=== PATIENT | male | born 1945 | race Caucasian/White ===

== ENCOUNTER 2016-03-16 14:52 | Observation (INO) | payer MEDICARE, OTHER ==
[~2016-03-16] VITALS: Ht 170.2 cm; Wt 96.2 kg
[2016-03-16 15:00] VITALS: BP 140/97
[2016-03-16 15:54] LABS: BASOPHILS % (AUTO) 0 % (0-10); EOSINOPHILS # (AUTO) 0.1 10^3/uL (0.0-0.3); EOSINOPHILS % (AUTO) 1 % (0-10); LYMPHOCYTES # (AUTO) 1.8 X 10^3 (1.0-4.0); LYMPHOCYTES % (AUTO) 20 % (12-44); MEAN CORPUSCULAR HEMOGLOBIN 32 PG (25-34); MEAN CORPUSCULAR HGB CONC 35 G/DL (32-36); MEAN CORPUSCULAR VOLUME 92 FL (80-99); MEAN PLATELET VOLUME 10.5 FL (7.4-10.4); MONOCYTES % (AUTO) 11 % (0-12); NEUTROPHILS # (AUTO) 6.1 X 10^3 (1.8-7.8); NEUTROPHILS % (AUTO) 68 % (42-75); PLATELET COUNT 184 10^3/uL (130-400); RED BLOOD COUNT 4.84 10^6/uL (4.35-5.85)
[2016-03-16] MEDS ORDERED: CLOPIDOGREL 300 MG (PLAVIX) TABLET PO NR (16:00)
[2016-03-16 16:13] LABS: ALANINE AMINOTRANSFERASE 16 U/L (0-55); ALBUMIN 3.8 G/DL (3.2-4.5); ANION GAP 11 MMOL/L (5-14); ASPARTATE AMINO TRANSFERASE 16 U/L (5-34); BILIRUBIN,TOTAL 0.3 MG/DL (0.1-1.0); BLOOD UREA NITROGEN 29 MG/DL (7-18); BUN/CREATININE RATIO 24; CALCIUM 9.3 MG/DL (8.5-10.1); CARBON DIOXIDE 18 MMOL/L (21-32); CHLORIDE 109 MMOL/L (98-107); CREATININE SERUM 1.21 MG/DL (0.60-1.30); GFR ESTIMATED 59; GLUCOSE 110 MG/DL (70-105); POTASSIUM 4.4 MMOL/L (3.6-5.0); SODIUM 138 MMOL/L (135-145); TOTAL PROTEIN 7.4 G/DL (6.4-8.2)
[2016-03-16 16:18] LABS: TROPONIN I < 0.30 NG/ML (<0.30)
[2016-03-16] MEDS: ASPIRIN 325 MG (5 GR) TABLET PO SCH (16:51)
[2016-03-16] MEDS ORDERED: FLU TRIvalent (5 YOA+) 2016-17 (AFLURIA) 0.5 ML IM ONE (17:30)
[2016-03-16] MEDS ORDERED: MELA1TAB20 PO (17:40)
[2016-03-16] MEDS ORDERED: VALE530C PO (17:41)
[2016-03-16] MEDS ORDERED: ASPI-999 PO (17:46)
[2016-03-16] MEDS ORDERED: DOXA2TAB2 PO (17:46)
[2016-03-16] MEDS ORDERED: NIAC500T24 PO (17:46)
[2016-03-16] MEDS ORDERED: CYAN25003 SL (17:46)
[2016-03-16] MEDS ORDERED: KETO200T PO (17:46)
[2016-03-16] MEDS ORDERED: ROSU20TA28 PO (17:46)
[2016-03-16] MEDS ORDERED: MULT-517 PO (17:46)
[2016-03-16] MEDS ORDERED: LISI10TA2 PO (17:46)
[2016-03-16] MEDS ORDERED: CHOL500044 PO (17:46)
[2016-03-16 20:00] VITALS: BP 133/77
[2016-03-16 23:55] VITALS: BP 133/71
[2016-03-17 04:00] VITALS: BP 143/93
[2016-03-17 08:35] VITALS: BP 158/92
[2016-03-17] MEDS: ASPIRIN 325 MG (5 GR) TABLET PO SCH (08:41)
[2016-03-17] MEDS ORDERED: ASPIRIN 325 MG (5 GR) TABLET PO SCH (09:00)
--- NOTE | 2016-03-17 09:44 | Discharge Instructions ---
Discharge Instructions Discharge Medications New, Converted or Re-Newed RX: Other Continued Medications: Aspirin (Aspirin) 81 Mg Tab.chew 81 MG PO DAILY TAB Cholecalciferol (Vitamin D3) (Vitamin D3) 5,000 Unit Tablet 5000 UNIT PO DAILY TAB Cyanocobalamin (Vitamin B-12) (Vitamin B-12) 2,500 Mcg Tab.subl 2500 MCG SL DAILY TAB Doxazosin Mesylate (Doxazosin Mesylate) 2 Mg Tablet 2 MG PO BID TAB Ketoconazole (Ketoconazole) 200 Mg Tablet 200 MG PO DAILY TAB Lisinopril (Lisinopril) 10 Mg Tablet 10 MG PO DAILY TAB Melatonin/Pyridoxine HCl (B6) (Melatonin 10 mg Tablet) 1 Each Tab.mphase 1 EACH PO HS MG Multivitamin (Men's Multi-Vitamin) 1 Each Tablet 1 EACH PO DAILY TAB Niacinamide (Niacin) 500 Mg Tablet 500 MG PO DAILY TAB Rosuvastatin Calcium (Rosuvastatin Calcium) 20 Mg Tablet 20 MG PO DAILY TAB Valerian Root (Valerian) 450 Mg Capsule 450 MG PO HS CAP Patient Instructions Goal/Follow Up Appt: Schedule stress test as instructed by Cardiology Patient Instructions: Retunr if chest pain recurs Activity & Diet Discharge Diet: Cardiac Diet Activity as Tolerated: Yes MAIDA ROSARIO DO Mar 17, 2016 09:44
[2016-03-17] MEDS ORDERED: NIACIN 500 MG TABLET PO SCH (09:54)
[2016-03-17 10:30] VITALS: BP 158/92
--- NOTE | 2016-03-17 10:35 | Consultation-Cardiology ---
HPI-Cardiology Cardiology Consultation: Date of Consultation 03/17/16 Date of Admission Attending Physician Rodolfo Woody MD Admitting Physician Tay Govea MD Consulting Physician Danna CLAYTON MD HPI: Chief Complaint: Chest pain This is a 71-year-old gentleman who is in his usual state of health. He visited his primary care physician with the complains of headache, jaw pain, diaphoresis, chest discomfort. Review of Systems-Cardiology Review of Systems Constitutional: No As described under HPI, No no symptoms reported, No chills, No fever, No lightheadedness, No malaise, No tiredness, No weight loss, No weight gain, other (diaphoresis) Eyes: No As described under HPI, No no symptoms reported, No blindness, No blurred vision, No contact lenses, No drainage, No decreased acuity, No foreign body sensation, No glasses, No inflammation, No pain, No photophobia, No previous injury, No shadows, No tunnel vision, No other, No vision change Ears/Nose/Throat: No As described under HPI, No no symptoms reported, No chronic hearing loss, No epistaxis, No ear discharge, No ear pain, No loose teeth, No mouth pain, No mouth swelling, No nasal drainage, No nose pain, No recent hearing loss, No throat pain, No throat swelling, No ulcerations, No other Respiratory: No no symptoms reported, No As described under HPI, No cough, No orthopnea, No shortness of breath, No SOB with excertion, No SOB at rest, No stridor, No wheezing, No other Cardiovascular: chest pain Gastrointestinal: No no symptoms reported, No As described under HPI, No abdomen distended, No abdominal pain, No blood streaked bowels, No constipation , No diarrhea, No difficulty swallowing, No nausea, No poor appetite, No poor fluid intake, No rectal bleeding, No vomiting, No other, No nausea/vomiting/ diarrhea, No stool coloration changes Genitourinary: No no symptoms reported, No As described under HPI, No burning, No dysuria, No discharge, No frequency, No flank pain, No hematuria, No incontinence, No pain, No urgency, No other, No urine frequency changes, No urine coloration changes Musculoskeletal: No no symptoms reported, No As describe under HPI, No back pain, No gout, No joint pain, No joint swelling, No muscle pain, No muscle stiffness, No neck pain, No other Skin: No no symptoms reported, No As described under HPI, No change in color, No change in hair/nails, No dryness, No lesions, No lumps, No rash, No other, No skin related problems, No ulcerations, No rash on exposed areas, No ulcerations on exposed areas Psychiatric/Neurological: headacheNo As described under HPI, No anxiety, No depression, No emotional problems, No focal weakness, No no symptoms reported, No numbness, No other, No pre-existing deficit, No seizure, No syncope, No tingling, No tremors, No weakness Hematologic: No no symptoms reported, No As described under HPI, No anemia, No blood clots, No easy bleeding, No easy bruising, No swollen glands, No other, No bleeding abnormalities MCL-Llaxkl-Cexmhp Hx Patient Social History Alcohol Use: Rarely Uses Recreational Drug Use: No Smoking Status: Current Everyday Smoker Type Used: Cigars Recent Foreign Travel: No Recent Infectious Disease Expo: No Hospitalization with Isolation: Denies Physical Abuse Screen: No Sexual Abuse: No Past Medical History PMH As described under Assessment. Allergies and Home Medications Allergies Coded Allergies: No Known Drug Allergies (Unverified , 03/16/16) Home Medications Aspirin 81 Mg Tab.chew 81 MG PO DAILY (Reported) Cholecalciferol (Vitamin D3) 5,000 Unit Tablet 5,000 UNIT PO DAILY (Reported) Cyanocobalamin (Vitamin B-12) 2,500 Mcg Tab.subl 2,500 MCG SL DAILY (Reported) Doxazosin Mesylate 2 Mg Tablet 2 MG PO BID (Reported) Ketoconazole 200 Mg Tablet 200 MG PO DAILY (Reported) Lisinopril 10 Mg Tablet 10 MG PO DAILY (Reported) Melatonin/Pyridoxine HCl (B6) 1 Each Tab.mphase 1 EACH PO HS (Reported) Multivitamin 1 Each Tablet 1 EACH PO DAILY (Reported) Niacinamide 500 Mg Tablet 500 MG PO DAILY (Reported) Rosuvastatin Calcium 20 Mg Tablet 20 MG PO DAILY (Reported) Valerian Root 450 Mg Capsule 450 MG PO HS (Reported) Physical Exam-Cardiology Physical Exam Vital Signs/I&O Vital Sign - Last 12Hours 03/17/16 03/17/16 03/17/16 03/17/16 04:00 04:00 07:00 08:15 Temp 97.8 Pulse 68 59 Resp 18 B/P 143/93 Pulse Ox 97 O2 Delivery Room Air Room Air Room Air 03/17/16 03/17/16 03/17/16 08:15 08:35 10:30 Temp 97.3 Pulse 57 57 Resp 16 16 B/P 158/92 158/92 Pulse Ox 97 97 O2 Delivery Room Air Room Air Room Air Intake and Output 03/17/16 00:00 Intake Total 840 ml Balance 840 ml Capillary Refill : Constitutional: No appears stated age, No AAO x 3, No apparent distress, No PERRL, No well-developed, No well-nourished, No other HEENT: No PERRL, No normal ENT inspection, No TMs normal, No pharynx normal, No scleral icterus (R), No scleral icterus (L), No pale conjunctivae (R), No pale conjunctivae (L), No photophobia, No TM abnormal (R), No TM abnormal (L), No pharyngeal erythema, No tonsillar exudate, No other, No discharge, No EOMI, No hearing is well preserved, No hard of hearing, No oral hygience is good, No ulceration, No xanthelasmas are seen Neck: No non-tender, No full range of motion, No supple, No normal inspection, No carotid bruit, No limited range of motion, No lymphadenopathy (R), No lymphadenopathy (L), No tender lateral, No tender midline, No thyromegaly, No other, No carotid pulses are 2 + bilaterally, No with good upstrokes Respiratory: No accessory muscle use, No respiratory distress, No chest tender , No chest expansion is symmetric, No chest is bilaterally symmetric, No lungs clear to percussion, No lungs clear to auscultation, No crackles, No rhonchi, No rales, No stridor, No wheezing, No pleural rub, No other Cardiovascular: No regular rate-rhythm, No irregularly irregular, No extra beats, No parasternal heave is noted, No JVD, No edema, No bradycardia, No tachycardia, No point of maximal impulse, No cardiac thrills are palpable, No S1 and S2, No gallop/S3, No gallop/S4, No diastolic murmur, No systolic murmur, No friction rub, No click, No other Gastrointestinal: No tender, No soft, No round, No distended, No pulsatile mass , No organomegaly, No guarding, No rebound, No tenderness, No hernia, No mass, No audible bowel sounds, No abnormal bowel sounds, No abdominal bruits, No spleenomegaly, No other Rectal: deferred Extremities: No normal range of motion, No non-tender, No normal inspection, No pedal edema, No calf tenderness, No normal capillary refill, No pelvis stable , No calf tenderness, No inflammation, No pedal edema, No slow capillary refill , No swelling, No other, No abrasion, No clubbing, No cyanosis, No ecchymosis, No laceration, No no lower extremity edema bilateral, No significant edema, No tenderness, No wound Neurologic/Psychiatric: No superintendent police II-XII nml as tested, No no motor/sensory deficits, No alert, No normal mood/affect, No oriented x 3, No abnormal cerebellar tests, No abnormal superintendent police II-XII, No abnormal gait, No aphasia, No EOM palsy, No facial droop, No motor weakness, No sensory deficit, No depressed affect, No disoriented x 3, No other, No grossly intact, No power is 5/5 both on sides Skin: No normal color, No warm/dry, No cyanosis, No cool, No diaphoresis, No damp, No ecchymosis, No jaundice, No mottled, No pallor, No rash, No tattoos/ piercings, No ulcerations, No rash on exposed areas, No ulcerations on exposed areas, No other Data Review Labs Laboratory Tests 03/16/16 15:48: Alanine Aminotransferase (ALT/SGPT) 16, Albumin 3.8, Alkaline Phosphatase 70, Anion Gap 11, Aspartate Amino Transf (AST/SGOT) 16, BUN/Creatinine Ratio 24, Basophils # (Auto) 0.0, Basophils (%) (Auto) 0, Blood Urea Nitrogen 29H, Calcium Level 9.3, Carbon Dioxide Level 18L, Chloride Level 109H, Creatinine 1.21, Eosinophils # (Auto) 0.1, Eosinophils (%) (Auto) 1, Estimat Glomerular Filtration Rate 59, Glucose Level 110H, Hematocrit 45, Hemoglobin 15.5, Lymphocytes # (Auto) 1.8, Lymphocytes (%) (Auto) 20, Mean Corpuscular Hemoglobin 32, Mean Corpuscular Hemoglobin Concent 35, Mean Corpuscular Volume 92, Mean Platelet Volume 10.5H, Monocytes # (Auto) 1.0, Monocytes (%) (Auto) 11 , Neutrophils # (Auto) 6.1, Neutrophils (%) (Auto) 68, Platelet Count 184, Potassium Level 4.4, Red Blood Count 4.84, Red Cell Distribution Width 14.0, Sodium Level 138, Total Bilirubin 0.3, Total Protein 7.4, Troponin I < 0.30, White Blood Count 9.0 03/16/16 22:02: Troponin I < 0.30 03/17/16 04:05: Troponin I < 0.30 ECG Impression ECG Initial ECG Rhythm: Normal Sinus Initial ECG Intervals Right bundle branch block A/P-Cardiology Assessment/Admission Diagnosis Chest pain, right bundle branch block, hypertension, hyperlipidemia Plan Chest pain in a patient who is 71-year-old with hypertension, hyperlipidemia, active cigar smoking. Acute coronary syndrome was ruled out with negative serial EKGs and troponins. The patient wants to go home. We recommended inpatient [facility] nuclear stress test but the patient wants it as an outpatient. We'll arrange it next week. I've recommended to the patient to seek immediate medical attention if the symptoms recur. He will continue the same medication for hypertension and hyperlipidemia. I will follow up in the office as an outpatient. My office contact information was given to the patient. Echocardiogram showed normal LV function with no significant wall motion of the modalities. Thank you for your consultation. Please call me if you have any questions. Brandi Clayton MD, FACP, FACC, FSCAI, FHRS, CCDS Interventional Cardiology Cardiac Electrophysiology Vascular Medicine and Endovascular Interventions Clinical Quality Measures DVT/VTE Risk/Contraindication: Risk Factor Score Per Nursin RFS Level Per Nursing on Admit: 3=High Danna CLAYTON MD Mar 17, 2016 10:35
--- NOTE | 2016-03-17 10:48 | Short Stay Summary-Hospitalist ---
HPI History of Present Illness: HPI/Chief Complaint CC: Chest pain HPI: This is a 71yoWM pt that was admitted via the one-call system with chest pain and body aches. EKGs were taken but were normal. 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 Cardiology is arranging for out-patient care. Patient Interview: Pt states that he very much wants to leave. Pt was ambulating in room. Pt states that he has not spoken to any physicians yet today. Pt states that he will receive nuclear medicine on the 27 of April. Pt states that he was supposed to have a stress test conducted, but felt very flushed and achy all over yesterday. Pt was placed on EKG and had an irregular heartbeat. EKGs conducted at [facility] have been normal. Pt states that his BP has been spiking. Pt states that he normally takes BP meds. Pt states that he has been stressed recently. Physical exam was stable. Pt smokes a few cigars each day. Pt states that he worked with the [employer] for 35 years. Plan: Send note to PCP DC Out-patient Cardiology Scribed by César Monge under the direct supervision of Dr. Rosario. Source: patient, RN/MD Date Seen 03/17/16 Attending Physician Rodolfo Woody MD PCP Tay Matos MD Referring Physician Date of Admission Mar 16, 2016 at 15:10 Home Medications & Allergies Home Medications Reviewed patient Home Medication Reconciliation Form Allergies Coded Allergies: No Known Drug Allergies (Unverified , 03/16/16) Past Wbasxmw-Pxwube-Ybxdvl Hx Patient Social History Marrital Status: Employed/Student: retired ([employer] 35 yrs) Alcohol Use: Rarely Uses Recreational Drug Use: No Smoking Status: Current Everyday Smoker Type Used: Cigars Physical Abuse Screen: No Sexual Abuse: No Recent Foreign Travel: No Contact w/other who traveled: No Recent Hopitalizations: No Recent Infectious Disease Expo: No Seasonal Allergies Seasonal Allergies: No Surgeries HX Surgeries: No Respiratory Hx Respiratory Disorders: No Cardiovascular Hx Cardiovascular Disorders: Yes Cardiac Disorders: High Cholesterol, Hypertension Neurological Hx Neurological Disorders: No Genitourinary Hx Genitourinary Disorders: No Gastrointestinal Hx Gastrointestinal Disorders: No Musculoskeletal Hx Musculoskeletal Disorders: No Endocrine Hx Endocrine Disorders: No HEENT HX ENT Disorders: Yes HEENT Disorders: Cataract Cancer Hx Cancer: No Psychosocial Hx Psychiatric Problems: No Integumentary HX Skin/Integumentary Disorder: No Review of Systems Constitutional: see HPI EENTM: no symptoms reported Respiratory: no symptoms reported Cardiovascular: chest pain Gastrointestinal: no symptoms reported Genitourinary: no symptoms reported Musculoskeletal: no symptoms reported Skin: no symptoms reported Psychiatric/Neurological: No Symptoms Reported All Other Systems Reviewed Negative Unless Noted: Yes Physical Exam Physical Exam Vital Signs Vital Sign - Last 12Hours 03/16/16 15:00 Temp 99.2 Pulse 79 Resp 11 B/P 140/97 Pulse Ox 97 O2 Delivery Room Air Capillary Refill : General Appearance: No Apparent Distress WD/WN Eyes: Bilateral Eye Normal Inspection, Bilateral Eye PERRL HEENT: PERRL/EOMI Normal ENT Inspection Pharynx Normal Neck: Full Range of Motion Normal Inspection Non Tender Supple Carotid Bruit Respiratory: Chest Non Tender Lungs Clear Normal Breath Sounds No Accessory Muscle Use No Respiratory Distress Cardiovascular: Regular Rate, Rhythm No Edema No Gallop No JVD No Murmur Normal Peripheral Pulses Gastrointestinal: Normal Bowel Sounds No Organomegaly No Pulsatile Mass Non Tender Soft Back: Normal Inspection No CVA Tenderness No Vertebral Tenderness Extremity: Normal Capillary Refill Normal Inspection Normal Range of Motion Non Tender No Calf Tenderness No Pedal Edema Neurologic/Psychiatric: Alert Oriented x3 No Motor/Sensory Deficits Normal Mood/Affect Skin: Normal Color Warm/Dry Lymphatic: No Adenopathy Results Results/Procedures Lab Laboratory Tests 03/16/16 15:48 Short Stay Diagnosis Discharge Diagnosis-Short Stay Admission Diagnosis Assessment: Chest pain of uncertain source but pt demands DC to home and will follow-up with stress test per cardiology. HTN HLP Final Discharge Diagnosis Assessment: Chest pain of uncertain source but pt demands DC to home and will follow-up with stress test per cardiology. HTN HLP Conclusion Plan DC patient or he will leave AMA EST outpatient Return if CP recurs Copy Copies To 1: TAY MATOS MD Clinical Quality Measures DVT/VTE Risk/Contraindication: Risk Factor Score Per Nursin RFS Level Per Nursing on Admit: 3=High MAIDA ROSARIO DO Mar 17, 2016 10:48
--- NOTE | 2016-03-17 13:50 | ECHOCARDIOGRAPHY REPORT ---
PROCEDURE PHYSICIAN: RAUL GOMES DATE OF PROCEDURE: 03/16/2016 TWO DIMENSIONAL ECHOCARDIOGRAM REPORT PRIMARY PHYSICIAN: OTHER PHYSICIAN: REFERRING PHYSICIAN: ORDERING PHYSICIAN: ATTENDING PHYSICIAN: Dr. Rodolfo Woody FAMILY PHYSICIAN: READING PHYSICIAN: INDICATION FOR THE PROCEDURE: Chest pain, shortness of breath MEASUREMENTS DERIVED VALUES LV DIAMETER (LAX) NORMALS NORMALS Diastolic (3.6-5.2) Eject. Fract. (60%+/-6%) Systolic (2.3-3.9) Diastolic Vol. % Shortening (0.22-0.42) Systolic Vol. Aortic Root IVS THICKNESS Diastolic (0.6-1.1) LVPW THICKNESS Diastolic (0.6-1.1) LA DIAMETER Systolic (2.1-3.7) FINDINGS: 1. Sinus rhythm. 2. This is a technically difficult study. 3. Left atrium enlargement is not noted. 4. Aortic root dimensions are normal. 5. Left ventricular systolic function is preserved. Left ventricular ejection fraction is 60%. Mild concentric LVH is present. Diastolic intraventricular septal diameter is 1.2 cm. 6. There is no wall motion abnormality. 7. Right heart size and function is normal. 8. There is no evidence of pericardial effusion. 9. There is mild diastolic dysfunction. 10. IVC is normal. VALVULAR STRUCTURE OF THE HEART: The mitral valve apparatus shows trace mitral regurgitation. There is trace tricuspid regurgitation with no significant pulmonary hypertension. There is no significant aortic pathology. The pulmonic valve is not well visualized. CONCLUSION: 1. LV and RV size and function is normal. 2. LV EF is 55 to 60%. 3. There is no significant valvular heart disease. 4. PA pressure is not elevated. 5. Mild diastolic dysfunction. 6. This is a difficult study and some images are limited. Job ID: [id number] Dictated Date: 03/17/2016 13:12:27 Paint And Table Edger Date: 03/17/2016 13:46:26 / chanelle
[2016-03-17] MEDS ORDERED: NON-FORMULARY MEDICATION 1 EA EA (Melatonin/Pyridoxine HCl (B6) (Melatonin 10 mg Tablet) 1 PO SCH (21:00)
[2016-03-17] MEDS ORDERED: VALERIAN ROOT 450 MG PO SCH (21:00)
[2016-03-17] MEDS ORDERED: doxAzosin 2 MG (CARDURA) TAB PO SCH (21:00)
[2016-03-18] MEDS ORDERED: MULTIVIT W/MINERALS TAB (THERAGRAN M) PO SCH (07:00)
[2016-03-18] MEDS ORDERED: KETOCONAZOLE 200 MG PO SCH (09:00)
[2016-03-18] MEDS ORDERED: lisINopril 10 MG (PRINIVIL) TAB PO SCH (09:00)
[2016-03-18] MEDS ORDERED: [UNRECOGNIZED DRUG - OTHER] SL SCH (09:00)
[2016-03-18] MEDS ORDERED: ROSUVASTATIN 20 MG (CRESTOR) TABLET PO SCH (09:00)
[2016-03-18] MEDS ORDERED: VITAMIN D3 5,000 UNITS (CHOLECALCIFEROL ) CAPSULE PO SCH (09:00)
[2016-03-18] MEDS ORDERED: ASPIRIN 81 MG CHEW (CHILDREN'S ASA) PO SCH (09:00)
[2016-03-18] MEDS ORDERED: CYANOCOBALAMIN 2500 MCG SL SCH (09:00)
== END 2016-03-17 09:41 | disposition home or self-care (01) ==
LOC: ICU 15:00 → UNDOADMOB 15:10 → ICU 15:10 → UNDODISOB 03-17 09:41
PROVIDERS: ADMIT Internal Medicine; ATTEND Internal Medicine
DX: R07.9 Chest pain, unspecified (principal); I10 Essential (primary) hypertension; E78.5 Hyperlipidemia, unspecified; F17.210 Nicotine dependence, cigarettes, uncomplicated; Z23 Encounter for immunization
CPT/HCPCS: 36415; 80053; 84484; 85025; 93005; 93306; 99211; G0378

== ENCOUNTER 2016-03-24 06:52 | Inpatient (IN) | payer MEDICARE, OTHER ==
[~2016-03-24] VITALS: Ht 170.2 cm; Wt 98.4 kg
[~2016-03-24 06:52] MED LIST: ASPI-999 PO; ASPIRIN 81 MG CHEW (CHILDREN'S ASA) ONE; CHOL500044 PO; CYAN25003 SL; DOXA2TAB2 PO; KETO200T PO; LISI10TA2 PO; MELA1TAB20 PO; MULT-517 PO; NIAC500T24 PO; ROSU20TA28 PO; RX-NITROGLYCERIN 0.4 MG TAB BTL 25'S SL ONE; VALE530C PO
--- OUTSIDE RECORDS SUMMARY | 2016-03-24 06:57 | XMS REPORT | Continuity of Care Document ---
Author Author [facility] Organization [facility] Address Unknown Phone Unavailable Care Team Providers Care Rn Bariatric Name Role Phone DONNA MATOS MD PCP Insurance Providers Payer Name Policy Number Subscriber Name Relationship Wps Medicare [id number] Jalen Brody 18 Self / Same As Patient Enter Insurance Name [id number] Jalen Brody 18 Self / Same As Patient For Life [id number] Jalen Brody 18 Self / Same As Patient Advance Directives Directive Response Recorded Date/Time Advance Directives No 03/16/16 3:00pm Health Care Power of Clinic Administrator Yes 03/16/16 3:00pm Organ Donor No 03/16/16 3:00pm Resuscitation Status Full Code 03/16/16 3:00pm Chief Complaint and Reason for Visit Chief Complaint CHEST PAIN/SOA Reason for Visit chest pain Problems Active Problems Medical Problem Onset Date Status chest pain Unknown Acute Medications Current Home Medications Medication Dose Units Route Directions Days/Qty Instructions Start Date Melatonin/Pyridoxine Hcl (B6) 1 Each 1 Each Oral Bedtime 03/16/16 Valerian Root 450 Mg 450 Mg Oral Bedtime 03/16/16 Rosuvastatin Calcium 20 Mg 20 Mg Oral Daily 03/16/16 Ketoconazole 200 Mg 200 Mg Oral Daily 03/16/16 Lisinopril 10 Mg 10 Mg Oral Daily 03/16/16 Cholecalciferol (Vitamin D3) 5,000 Unit 5,000 Unit Oral Daily Aspirin 81 Mg 81 Mg Oral Daily 03/16/16 Multivitamin 1 Each 1 Each Oral Daily 03/16/16 Cyanocobalamin (Vitamin B-12) 2,500 Mcg 2,500 Mcg Sublingual Daily 03/16/16 Niacinamide 500 Mg 500 Mg Oral Daily 03/16/16 Doxazosin Mesylate 2 Mg 2 Mg Oral Twice A Day 03/16/16 Social History Social History Problem Response Recorded Date/Time Alcohol Use Rarely Uses 03/16/2016 3:00pm Recreational Drug Use No 03/16/2016 3:00pm Recent Foreign Travel No 03/16/2016 3:09pm Recent Infectious Disease Exposure No 03/16/2016 3:00pm Hospitalization with Isolation Denies 03/17/2016 12:49pm Smoking Status Current Everyday Smoker 03/16/2016 3:00pm Type Used Cigars 03/17/2016 12:49pm Recent Hopitalizations No 03/16/2016 3:00pm Hospitalization with Isolation Denies 03/17/2016 12:49pm Query Response Start Date Stop Date Smoking Status Current Everyday Smoker Hospital Discharge Instructions Patient Instructions Physician Instructions New, Converted or Re-Newed RX: Other Goal/Follow Up Appt: Schedule stress test as instructed by Cardiology Patient Instructions: Retunr if chest pain recurs Discharge Diet: Cardiac Diet Activity as Tolerated: Yes Care Plan Patient Instructions:: Retunr if chest pain recurs Goal:: Schedule stress test as instructed by Cardiology Plan of Care Discharge Date 03/17/16 10:30am Disposition 01 HOME, SELF-CARE Instructions/Education Provided Chest Pain (DC) Prescriptions See Medication Section Referrals (Unspecified) - Reason(s) for Referral: Scheduling will call you for an appointment for a Nuclear Medicine stress test. Most likely will be on 04-21-16 Care Plan and Goals See Discharge Instructions Section Functional Status Query Response Date Recorded Patient Orientation Person Place Time Situation March 17, 2016 12:49pm Comprehension Ability Understands Concepts March 17, 2016 8:15am Allergies, Adverse Reactions, Alerts No known allergies. Immunizations Name Given Type FLU TRIvalent 5 years - Adult 03/17/16 Administered Vital Signs Acute Vital Signs Vital Response Date/Time Temperature (Fahrenheit) 97.3 degrees F (97.6 - 99.5) 03/17/2016 10:30am Temperature (Calculated Celsius) 36.57003 degrees C (36.4 - 37.5) 03/17/2016 8:35am Temperature Source Tympanic 03/17/2016 10:30am Pulse Rate (adult) 57 bpm (60 - 90) 03/17/2016 10:30am Respiratory Rate 16 bpm (12 - 24) 03/17/2016 10:30am O2 Sat by Pulse Oximetry 97 % (88 - 100) 03/17/2016 10:30am Blood Pressure 158/92 mm Hg 03/17/2016 10:30am Blood Pressure Mean 114 mm Hg 03/17/2016 8:35am Pain Numeric Pain Scale 0-No Pain 03/17/2016 10:30am Height (Feet) 5 feet 03/16/2016 3:00pm Height (Inches) 7.00 inches 03/16/2016 3:00pm Height (Calculated Centimeters) 170.368945 cm 03/16/2016 3:00pm Weight (Pounds) 212 pounds 03/17/2016 5:51am Weight (Ounces) 4.0 oz 03/16/2016 3:00pm Weight (Calculated Grams) 26971.583 gm 03/17/2016 5:51am Weight (Calculated Kilograms) 96.680757 kilograms 03/17/2016 5:51am Calculated BMI 33.2 03/16/2016 3:00pm Results Laboratory Results Test Name Result Units Flags Reference Collection Date/Time Result Date/ Time Comments White Blood Count 9.0 10^3/uL 4.3-11.0 03/16/2016 3:48pm 03/16/2016 3: 54pm Red Blood Count 4.84 10^6/uL 4.35-5.85 03/16/2016 3:48pm 03/16/2016 3: 54pm Hemoglobin 15.5 G/DL 13.3-17.7 03/16/2016 3:48pm 03/16/2016 3:54pm Hematocrit 45 % 40-54 03/16/2016 3:48pm 03/16/2016 3:54pm Mean Corpuscular Volume 92 FL 80-99 03/16/2016 3:48pm 03/16/2016 3: 54pm Mean Corpuscular Hemoglobin 32 PG 25-34 03/16/2016 3:48pm 03/16/2016 3: 54pm Mean Corpuscular Hemoglobin Concent 35 G/DL 32-36 03/16/2016 3:48pm 3:54pm Red Cell Distribution Width 14.0 % 10.0-14.5 03/16/2016 3:48pm 2016 3:54pm Platelet Count 184 10^3/uL 130-400 03/16/2016 3:48pm 03/16/2016 3:54pm Mean Platelet Volume 10.5 FL H 7.4-10.4 03/16/2016 3:48pm 03/16/2016 3: 54pm Neutrophils (%) (Auto) 68 % 42-75 03/16/2016 3:48pm 03/16/2016 3:54pm Lymphocytes (%) (Auto) 20 % 12-44 03/16/2016 3:48pm 03/16/2016 3:54pm Monocytes (%) (Auto) 11 % 0-12 03/16/2016 3:48pm 03/16/2016 3:54pm Eosinophils (%) (Auto) 1 % 0-10 03/16/2016 3:48pm 03/16/2016 3:54pm Basophils (%) (Auto) 0 % 0-10 03/16/2016 3:48pm 03/16/2016 3:54pm Neutrophils # (Auto) 6.1 X 10^3 1.8-7.8 03/16/2016 3:48pm 03/16/2016 3: 54pm Lymphocytes # (Auto) 1.8 X 10^3 1.0-4.0 03/16/2016 3:48pm 03/16/2016 3: 54pm Monocytes # (Auto) 1.0 X 10^3 0.0-1.0 03/16/2016 3:48pm 03/16/2016 3: 54pm Eosinophils # (Auto) 0.1 10^3/uL 0.0-0.3 03/16/2016 3:48pm 03/16/2016 3 :54pm Basophils # (Auto) 0.0 10^3/uL 0.0-0.1 03/16/2016 3:48pm 03/16/2016 3: 54pm Sodium Level 138 MMOL/L 135-145 03/16/2016 3:48pm 03/16/2016 4:15pm Potassium Level 4.4 MMOL/L 3.6-5.0 03/16/2016 3:48pm 03/16/2016 4:15pm Chloride Level 109 MMOL/L H 98-107 03/16/2016 3:48pm 03/16/2016 4:15pm Carbon Dioxide Level 18 MMOL/L L 21-32 03/16/2016 3:48pm 03/16/2016 4: 15pm Anion Gap 11 MMOL/L 5-14 03/16/2016 3:48pm 03/16/2016 4:15pm Blood Urea Nitrogen 29 MG/DL H 7-18 03/16/2016 3:48pm 03/16/2016 4:15pm Creatinine 1.21 MG/DL 0.60-1.30 03/16/2016 3:48pm 03/16/2016 4:15pm BUN/Creatinine Ratio 24 03/16/2016 3:48pm 03/16/2016 4:15pm Estimat Glomerular Filtration Rate 59 03/16/2016 3:48pm 03/16/2016 4:15pm GFR INTERPRETIVE DATA UNITS FOR ESTIMATED GFR (eGFR): mL/min/1.73 M2 REFERENCE RANGE FOR ESTIMATED GFR (eGFR) eGFR NORMAL eGFR >60 MODERATELY DECREASED eGFR 30-59 SEVERLY DECREASED eGFR 15-29 KIDNEY FAILURE <15 (OR DIALYSIS) Glucose Level 110 MG/DL H 70-105 03/16/2016 3:48pm 03/16/2016 4:15pm Calcium Level 9.3 MG/DL 8.5-10.1 03/16/2016 3:48pm 03/16/2016 4:15pm Total Bilirubin 0.3 MG/DL 0.1-1.0 03/16/2016 3:48pm 03/16/2016 4:15pm Alkaline Phosphatase 70 U/L 40-136 03/16/2016 3:48pm 03/16/2016 4:15pm Aspartate Amino Transf (AST/SGOT) 16 U/L 5-34 03/16/2016 3:48pm 2016 4:15pm Alanine Aminotransferase (ALT/SGPT) 16 U/L 0-55 03/16/2016 3:48pm 03/16 4:15pm Troponin I < 0.30 NG/ML <0.30 03/17/2016 4:05am 03/17/2016 5:10am Total Protein 7.4 G/DL 6.4-8.2 03/16/2016 3:48pm 03/16/2016 4:15pm Albumin 3.8 G/DL 3.2-4.5 03/16/2016 3:48pm 03/16/2016 4:15pm Procedures Procedure Status Date Provider(s) Tracing only of electrocardiogram Completed 03/16/16 RONDA POE MD Color Doppler echocardiography Active 03/16/16 Danna GOMES MD Tracing only of electrocardiogram Completed 03/16/16 Danna GOMES MD Tracing only of electrocardiogram Completed 03/17/16 Danna GOMES MD Encounters Encounter Location Arrival/Admit Date Discharge/Depart Date Attending Provider Discharged Inpatient (obs) [facility] 03/16/16 3:10pm 10:30am RONDA POE MD Recent Diagnosis chest pain
[2016-03-24] MEDS: ASPIRIN 81 MG CHEW (CHILDREN'S ASA) PO ONE ×2 (06:59→09:24)
[2016-03-24] MEDS ORDERED: HEParin DRIP 25000 UNIT/500ML 500 ML IV ONE (07:00)
[2016-03-24] MEDS ORDERED: HEParin 1000 UNIT/ML (10ML VIAL) FOR BOLUS IV ONE (07:00)
[2016-03-24] MEDS: RX-NITROGLYCERIN 0.4 MG TAB BTL 25'S SL PRN ×2 (07:00→07:05)
[2016-03-24] MEDS ORDERED: ONDANSETRON 4 MG/2 ML (SDV) Z0FRAN ONE (07:01)
[2016-03-24] MEDS ORDERED: morphine INJ 10 MG/ML 1ML (SYR OR VIAL) IVP STA (07:02)
[2016-03-24] MEDS: CLOPIDOGREL 300 MG (PLAVIX) TABLET PO ONE ×2 (07:07→09:24)
[2016-03-24 07:08] LABS: BASOPHILS % (AUTO) 0 % (0-10); EOSINOPHILS # (AUTO) 0.3 10^3/uL (0.0-0.3); EOSINOPHILS % (AUTO) 3 % (0-10); LYMPHOCYTES # (AUTO) 3.8 X 10^3 (1.0-4.0); LYMPHOCYTES % (AUTO) 42 % (12-44); MEAN CORPUSCULAR HEMOGLOBIN 32 PG (25-34); MEAN CORPUSCULAR HGB CONC 35 G/DL (32-36); MEAN CORPUSCULAR VOLUME 91 FL (80-99); MEAN PLATELET VOLUME 10.3 FL (7.4-10.4); MONOCYTES # (AUTO) 0.7 X 10^3 (0.0-1.0); MONOCYTES % (AUTO) 8 % (0-12); NEUTROPHILS # (AUTO) 4.3 X 10^3 (1.8-7.8); NEUTROPHILS % (AUTO) 47 % (42-75); PLATELET COUNT 207 10^3/uL (130-400); RED BLOOD COUNT 5.23 10^6/uL (4.35-5.85); RED CELL DISTRIBUTION WIDTH 14.2 % (10.0-14.5); WHITE BLOOD COUNT 9.1 10^3/uL (4.3-11.0)
--- NOTE | 2016-03-24 07:08 | ED Chest Pain ---
General Stated Complaint: CP Source: patient (DIFFICULT HISTORIAN AND TALKS NON-STOP--DIFFICULT TO KEEP ON SUBJECT), old records (ALL PMH IS FROM OLD CHART) History of Present Illness Time seen by provider: 06:53 Initial Comments PT ARRIVES VIA POV FROM HOME C/O CHEST PAIN AND "HURTING ALL OVER" WITH PAIN IN LEFT JAW/NECK AND LEFT ARM -- BEGAN ON WAKING AN HOUR AGO, BUT STATES HE HAS BEEN HAVING THIS PAIN OFF AND ON FOR A WEEK WAS HOSPITALIZED LAST WEEK FOR SAME, BUT PT INSISTED ON LEAVING BEFORE STRESS TEST WAS CONDUCTED. PT HAS BEEN SHORT OF BREATH, PER , BUT PT DENIES FEELING SHORT OF BREATH DENIES SWEATS DENIES NAUSEA/VOMITING NO SWELLING IN LEGS/ FEET OR PAIN IN CALVES PCP: DR. MATOS Allergies and Home Medications Allergies Coded Allergies: No Known Drug Allergies (Unverified , 03/16/16) Home Medications Aspirin 81 Mg Tab.chew 81 MG PO DAILY (Reported) Cholecalciferol (Vitamin D3) 5,000 Unit Tablet 5,000 UNIT PO DAILY (Reported) Cyanocobalamin (Vitamin B-12) 2,500 Mcg Tab.subl 2,500 MCG SL DAILY (Reported) Doxazosin Mesylate 2 Mg Tablet 2 MG PO BID (Reported) Ketoconazole 200 Mg Tablet 200 MG PO DAILY (Reported) Lisinopril 10 Mg Tablet 10 MG PO DAILY (Reported) Melatonin/Pyridoxine HCl (B6) 1 Each Tab.mphase 1 EACH PO HS (Reported) Multivitamin 1 Each Tablet 1 EACH PO DAILY (Reported) Niacinamide 500 Mg Tablet 500 MG PO DAILY (Reported) Rosuvastatin Calcium 20 Mg Tablet 20 MG PO DAILY (Reported) Valerian Root 450 Mg Capsule 450 MG PO HS (Reported) Review of Systems Constitutional: no symptoms reported Respiratory: See HPI Shortness of Air Cardiovascular: See HPI Chest Pain Gastrointestinal: No Symptoms Reported Genitourinary: No Symptoms Reported Musculoskeletal: see HPI Skin: no symptoms reported Psychiatric/Neurological: No Symptoms Reported Endocrine: No Symptoms Reported Hematologic/Lymphatic: No Symptoms Reported Past Mlqhynm-Jsjcqn-Icuzla Hx Patient Social History Alcohol Use: Occasionally Uses Recreational Drug Use: No Smoking Status: Current Everyday Smoker Type Used: Cigars Recent Foreign Travel: No Contact w/Someone Who Travel: No Recent Hopitalizations: No Seasonal Allergies Seasonal Allergies: No Surgeries HX Surgeries: No Respiratory Hx Respiratory Disorders: No Cardiovascular Hx Cardiac Disorders: Yes Cardiac Disorders: High Cholesterol, Hypertension Neurological Hx Neurological Disorders: No Genitourinary Hx Genitourinary Disorders: No Gastrointestinal Hx Gastrointestinal Disorders: No Musculoskeletal Hx Musculoskeletal Disorders: No Endocrine Hx Endocrine Disorders: No HEENT HX ENT Disorders: Yes HEENT Disorders: Cataract Cancer Hx Cancer: No Psychosocial Hx Psychiatric Problems: No Integumentary HX Skin/Integumentary Disorder: No Physical Exam Vital Signs Capillary Refill : General Appearance: No Apparent Distress WD/WN HEENT: PERRL/EOMI Neck: Full Range of Motion Normal Inspection Non Tender SuppleNo Carotid Bruit , No JVD Respiratory: Normal Breath Sounds No Accessory Muscle Use No Respiratory Distress Cardiovascular: Regular Rate, Rhythm No Edema No JVD No Murmur Normal Peripheral Pulses Gastrointestinal: Normal Bowel Sounds No Organomegaly No Pulsatile Mass Non Tender Soft Extremity: Normal Capillary Refill Normal Inspection Normal Range of Motion Non Tender No Calf Tenderness No Pedal Edema Neurologic/Psychiatric: Alert Oriented x3 No Motor/Sensory Deficits mop worker II- XII Norm as Tested Skin: Normal Color Warm/Dry Critical Care Note Critical Care Total Time (minutes) 25 Progress/Results/Core Measures Results/Orders Lab Results Laboratory Tests Test 03/24/16 06:57 Range/Units Activated Partial Thromboplast Time 34 24-35 SEC Basophils # (Auto) 0.0 0.0-0.1 10^3/uL Basophils (%) (Auto) 0 0-10 % Eosinophils # (Auto) 0.3 0.0-0.3 10^3/uL Eosinophils (%) (Auto) 3 0-10 % Hematocrit 48 40-54 % Hemoglobin 16.6 13.3-17.7 G/DL INR Comment 1.0 0.8-1.4 Lymphocytes # (Auto) 3.8 1.0-4.0 X 10^3 Lymphocytes (%) (Auto) 42 12-44 % Mean Corpuscular Hemoglobin 32 25-34 PG Mean Corpuscular Hemoglobin Concent 35 32-36 G/DL Mean Corpuscular Volume 91 80-99 FL Mean Platelet Volume 10.3 7.4-10.4 FL Monocytes # (Auto) 0.7 0.0-1.0 X 10^3 Monocytes (%) (Auto) 8 0-12 % Neutrophils # (Auto) 4.3 1.8-7.8 X 10^3 Neutrophils (%) (Auto) 47 42-75 % Platelet Count 207 130-400 10^3/uL Prothrombin Time 13.0 12.2-14.7 SEC Red Blood Count 5.23 4.35-5.85 10^6/uL Red Cell Distribution Width 14.2 10.0-14.5 % White Blood Count 9.1 4.3-11.0 10^3/uL My Orders Orders-ADIS GUNDERSON DO Aspirin Chewable Tablet (Baby Aspirin Ch (03/24/16 06:51) Rx-Nitroglycerin Sl Tabs (Rx-Nitrostat S (03/24/16 06:51) Heparin Drip 07881 Unit/500ml (Heparin (03/24/16 07:00) Heparin (Bolus Per Protocol) (Heparin (B (03/24/16 07:00) Clopidogrel Tablet (Plavix Tablet) (03/24/16 07:00) Amylase (03/24/16 07:00) Cbc With Automated Diff (03/24/16 07:00) Comprehensive Metabolic Panel (03/24/16 07:00) Creatine Kinase (03/24/16 07:00) Creatine Kinase Mb (03/24/16 07:00) Lipase (03/24/16 07:00) Partial Thromboplastin Time (03/24/16 07:00) Protime With Inr (03/24/16 07:00) Troponin I (03/24/16 07:00) Chest 1 View, Ap/Pa Only (03/24/16 07:00) O2 (03/24/16 07:00) Ekg Tracing (03/24/16 07:00) Aspirin Chewable Tablet (Baby Aspirin Ch (03/24/16 07:00) Rx-Nitroglycerin Sl Tabs (Rx-Nitrostat S (03/24/16 07:00) BNP (03/24/16 07:00) Monitor-Rhythm Ecg Trace Only (03/24/16 07:00) Magnesium (03/24/16 07:00) Morphine Injection (Morphine Injection (03/24/16 07:02) Ondansetron Injection (Zofran Injectio (03/24/16 07:15) Ondansetron Injection (Zofran Injectio (03/24/16 07:01) Saline Lock/Iv-Start (03/24/16 07:12) Ns Iv 1000 Ml (Sodium Chloride 0.9%) (03/24/16 07:12) Progress Note : Progress Note PAIN EASED WITH NTG AND MORPHINE DOWN TO 2/10, BUT DROP IN BP AND HEART RATE AND O2 SAT BP DROPPED TO 60'S SYSTOLIC AND HEART RATE DOWN TO 40'S, O2 SAT DOWN TO 91% BP COMING UP WITH FLUID BOLUS, BUT PAIN COMING BACK PT IS BEING TRANSFERRED TO [facility] AT 0718 ECG Initial ECG Impression Time: 06:55 Initial ECG Rate: 67 Initial ECG Rhythm: Normal Sinus Initial ECG Impression: Acute NC (INFERIOR WITH RBBB) Initial ECG Comparisson: Changed (FORM 03/17/16) Departure Communication Progress Notes [id number]--PAGED/ SPOKE WITH DR. JARA, ORDERS FOR HEPARIN AND PLAVIX NOTED, AND [facility] CHIEF CURRENTLY BEING CALLED IN 0712--[facility] CHIEF STAFF HERE TO TAKE PT Impression Impression: Primary Impression: ACUTE INFERIOR STEMI Disposition: 09 ADMITTED INPATIENT (TO [facility] CHIE[facility]) Condition: Critical Decision to Admit Reason: Admit from ER (General) (TO [facility] CHIEF) Decision to Admit/Date: Mar 24, 2016 Time/Decision to Admit Time: 06:55 Departure-Patient Inst. Referrals: DONNA MATOS MD (PCP/Family) Primary Care Physician ADIS GUNDERSON DO Mar 24, 2016 07:07
[2016-03-24] MEDS ORDERED: NS IV 1000 ML 1,000 ML IV ONE (07:12)
[2016-03-24] MEDS ORDERED: ONDANSETRON 4 MG/2 ML (SDV) Z0FRAN IVP ONE ×2 (07:15→07:30)
--- OUTSIDE RECORDS SUMMARY | 2016-03-24 07:20 | XMS REPORT | Continuity of Care Document ---
Author Author [facility] Organization [facility] Address Unknown Phone Unavailable Care Team Providers Care Gas Distribution Supervisor Name Role Phone DONNA MATOS MD PCP Insurance Providers Payer Name Policy Number Subscriber Name Relationship Wps Medicare [id number] Jalen Brody 18 Self / Same As Patient Enter Insurance Name [id number] Jalen Brody 18 Self / Same As Patient For Life [id number] Jalen Brody 18 Self / Same As Patient Advance Directives Directive Response Recorded Date/Time Advance Directives No 03/16/16 3:00pm Health Care Power of Lithographic Plate Maker Yes 03/16/16 3:00pm Organ Donor No 03/16/16 [...] - 99.5) 03/17/2016 10:30am Temperature (Calculated Celsius) 36.20401 degrees C (36.4 - 37.5) 03/17/2016 8:35am [...] 7.00 inches 03/16/2016 3:00pm Height (Calculated Centimeters) 170.309622 cm 03/16/2016 3:00pm Weight (Pounds) 212 pounds 03/17/2016 5:51am Weight (Ounces) 4.0 oz 03/16/2016 3:00pm Weight (Calculated Grams) 26577.583 gm 03/17/2016 5:51am Weight (Calculated Kilograms) 96.549362 kilograms 03/17/2016 5:51am Calculated BMI 33.2 03/16/2016 [...] Date Attending Provider Discharged Inpatient (obs) [facility] 03/16/16 3:10pm 10:30am RONDA POE MD Recent Diagnosis chest pain
--- OUTSIDE RECORDS SUMMARY | 2016-03-24 07:20 | XMS REPORT | Continuity of Care Document ---
Author Author [facility] Organization [facility] Address Unknown Phone Unavailable Care Team Providers Care Group Leader Semiconductor Processing Name Role Phone DONNA MATOS MD PCP Insurance Providers Payer Name Policy Number Subscriber Name Relationship Wps Medicare [id number] Jalen Brody 18 Self / Same As Patient Enter Insurance Name [id number] Jalen Brody 18 Self / Same As Patient For Life [id number] Jalen Brody 18 Self / Same As Patient Advance Directives Directive Response Recorded Date/Time Advance Directives No 03/16/16 3:00pm Health Care Power of Car Wash Attendant Automatic Yes 03/16/16 3:00pm Organ Donor No 03/16/16 [...] - 99.5) 03/17/2016 10:30am Temperature (Calculated Celsius) 36.07343 degrees C (36.4 - 37.5) 03/17/2016 8:35am [...] 7.00 inches 03/16/2016 3:00pm Height (Calculated Centimeters) 170.381395 cm 03/16/2016 3:00pm Weight (Pounds) 212 pounds 03/17/2016 5:51am Weight (Ounces) 4.0 oz 03/16/2016 3:00pm Weight (Calculated Grams) 49072.583 gm 03/17/2016 5:51am Weight (Calculated Kilograms) 96.010345 kilograms 03/17/2016 5:51am Calculated BMI 33.2 03/16/2016 [...] Date Attending Provider Discharged Inpatient (obs) [facility] 03/16/16 3:10pm 10:30am RONDA POE MD Recent Diagnosis chest pain
[2016-03-24] MEDS ORDERED: MIDAZOLAM 5 MG/5 ML (VERSED) VIAL ONE (07:22)
[2016-03-24] MEDS ORDERED: HEParin 1000 UNIT/ML (10ML VIAL) FOR BOLUS ONE (07:22)
[2016-03-24] MEDS ORDERED: fentaNYL INJECTION 100 MCG/2 ML AMP ONE (07:22)
[2016-03-24] MEDS ORDERED: HEParin (CATH LAB) 2,000 ML IV ONE (07:22)
[2016-03-24] MEDS ORDERED: NS IV 1000 ML 0 ML ONE (07:22)
[2016-03-24] MEDS ORDERED: NITROGLYCERIN DRIP 25 MG/D5W 250 ML IV ONE (07:22)
[2016-03-24] MEDS ORDERED: EPTIFIBATIDE BOLUS 20 ML IV ONE (07:22)
[2016-03-24] MEDS ORDERED: diphenhydrAMINE 50 MG/ML INJ (BENADRYL) ONE (07:22)
[2016-03-24] MEDS ORDERED: LIDOCAINE 1% INJ 20 ML (XYLOCAINE) VIAL ONE (07:23)
[2016-03-24 07:25] LABS: ALANINE AMINOTRANSFERASE 21 U/L (0-55); ALBUMIN 4.1 G/DL (3.2-4.5); AMYLASE 143 U/L (25-125); ANION GAP 12 MMOL/L (5-14); ASPARTATE AMINO TRANSFERASE 18 U/L (5-34); BILIRUBIN,TOTAL 0.5 MG/DL (0.1-1.0); BLOOD UREA NITROGEN 19 MG/DL (7-18); BUN/CREATININE RATIO 14; CALCIUM 9.5 MG/DL (8.5-10.1); CARBON DIOXIDE 20 MMOL/L (21-32); CHLORIDE 108 MMOL/L (98-107); CREATINE KINASE 65 U/L (30-200); CREATININE SERUM 1.36 MG/DL (0.60-1.30); GFR ESTIMATED 51; GLUCOSE 147 MG/DL (70-105); LIPASE 94 U/L (8-78); MAGNESIUM 2.3 MG/DL (1.8-2.4); SODIUM 140 MMOL/L (135-145)
[2016-03-24] MEDS ORDERED: ATROPINE INJECTION 1 MG/10 ML SYR (ABBOTT) ONE (07:27)
[2016-03-24] MEDS ORDERED: EPTIFIBATIDE DRIP 100 ML IV ONE (07:30)
[2016-03-24 07:31] LABS: TROPONIN I < 0.30 NG/ML (<0.30)
[2016-03-24] MEDS ORDERED: DOPamine DRIP 250 ML IV ONE (07:46)
--- NOTE | 2016-03-24 08:15 | Cardiac Procedure Note-CS/ASA ---
Pre-Procedure Note Pre-Op Procedure Note H&P Reviewed The H&P was reviewed, patient examined and no changes noted. Date H&P Reviewed: Mar 24, 2016 Time H&P Reviewed: 07:25 Conscious Sedation Pre-Proced Time Reviewed: 07:25 ASA Class: 4 Airway Mallampati Classification: ([place] appropriate class) I. II. III, IV Lungs Heart ASA score ASA 1: a normal healthy patient ASA 2: a patient with a mild systemic disease (mid diabetes, controlled hypertension, obesity ASA 3: a patient with a severe systemic disease that limits activity (angina , COPD, prior Myocardial infarction) ASA 4: a patient with an incapacitating disease that is a constant threat to life (CHF, renal failure) ASA 5: a moribund patient not expected to survive 24 hrs. (ruptured aneurysm) ASA 6: a declared brain patient whose organs are being harvested. For emergent operations, add the letter E after the classification Grade 2 Sedation Plan: Analgesia, Amnesia, Plan communicated to team members, Discussed options with patient/fam, Discussed risks with patient/fam Note The patient is an appropriate candidate to undergo the planned procedure, sedation, and anesthesia. The patient immediately re-assessed prior to indication. ANTONI JARA MD FACP FAC CCDS Mar 24, 2016 08:15
[2016-03-24] MEDS ORDERED: CLOPIDOGREL 300 MG (PLAVIX) TABLET PO ONE (08:16)
--- NOTE | 2016-03-24 08:23 | Cardiology History & Physical ---
HPI-Cardiology Cardiology H&P Date of Admission 03/24/17 Primary Care Physician Tay Govea MD Attending Physician Donna Sanders MD FACP [facility] Primary chicken and fish cleaner: Dr Clayton Consulting Physician [facility] CC: Chest pain HPI: 71 yo man with multiple cor risk factors and with approx 2 weeks of intermittent chest discomfort, awoke with mid sternal and L chest pain, radiating to L arm and L jaw, and associated with diaphoresis and shortness of breath, not associated with palp or syncope. Presented to ER where he was found to have new ST elev in inf leads. Emergency cath and possible PCI recommended. The ER physician and I spoke with him and he provided verbal consent Review of Systems-Cardiology Review of Systems Constitutional: tiredness Eyes: No vision change Ears/Nose/Throat: No ear discharge, No nasal drainage Respiratory: SOB with excertion Cardiovascular: As described under HPI Gastrointestinal: No constipation, No nausea, No vomiting Genitourinary: No dysuria, No hematuria, No urine frequency changes Musculoskeletal: back pain (chronic) Skin: No rash on exposed areas, No ulcerations on exposed areas Psychiatric/Neurological: No focal weakness, No seizure, No syncope Hematologic: bleeding abnormalities HYJ-Miqahg-Dvtifh Hx Patient Social History Alcohol Use: Occasionally Uses Recreational Drug Use: No Smoking Status: Current Everyday Smoker Type Used: Cigars Recent Foreign Travel: No Recent Infectious Disease Expo: No Hospitalization with Isolation: Denies Physical Abuse Screen: No Sexual Abuse: No Immunizations Up To Date Tetanus Booster (TDap): Unknown Past Medical History PMH As described under Assessment. Family Medical History Family Medical History: He does not report fam h/o early CAD Allergies and Home Medications Allergies Coded Allergies: No Known Drug Allergies (Unverified , 03/16/16) Home Medications Aspirin 81 Mg Tab.chew 81 MG PO DAILY (Reported) Cholecalciferol (Vitamin D3) 5,000 Unit Tablet 5,000 UNIT PO DAILY (Reported) Cyanocobalamin (Vitamin B-12) 2,500 Mcg Tab.subl 2,500 MCG SL DAILY (Reported) Doxazosin Mesylate 2 Mg Tablet 2 MG PO BID (Reported) Ketoconazole 200 Mg Tablet 200 MG PO DAILY (Reported) Lisinopril 10 Mg Tablet 10 MG PO DAILY (Reported) Melatonin/Pyridoxine HCl (B6) 1 Each Tab.mphase 1 EACH PO HS (Reported) Multivitamin 1 Each Tablet 1 EACH PO DAILY (Reported) Niacinamide 500 Mg Tablet 500 MG PO DAILY (Reported) Rosuvastatin Calcium 20 Mg Tablet 20 MG PO DAILY (Reported) Valerian Root 450 Mg Capsule 450 MG PO HS (Reported) Physical Exam-Cardiology Physical Exam Vital Signs/I&O Vital Sign - Last 12Hours 03/24/16 03/24/16 06:53 06:54 Temp 98.0 Pulse 66 Resp 18 B/P 205/106 Pulse Ox 98 98 O2 Delivery Nasal Cannula Nasal Cannula O2 Flow Rate 2 2 Capillary Refill : Less Than 3 Seconds Constitutional: AAO x 3 well-developed well-nourished HEENT: EOMI hearing is well preservedNo xanthelasmas are seen Neck: carotid pulses are 2 + bilaterally Respiratory: No accessory muscle use, other (good bilateral air entry; a few scattered rhonchi) Cardiovascular: regular rate-rhythm S1 and S2 systolic murmur (faint EL at cardiac base) Gastrointestinal: No tender, No guarding, No rebound, audible bowel sounds Extremities: No clubbing, No cyanosis, No significant edema Neurologic/Psychiatric: oriented x 3 grossly intact Skin: No rash on exposed areas, No ulcerations on exposed areas Data Review Labs Laboratory Tests 03/24/16 06:57: Activated Partial Thromboplast Time 34, Alanine Aminotransferase (ALT/SGPT) 21, Albumin 4.1, Alkaline Phosphatase 69, Amylase Level 143H, Anion Gap 12, Aspartate Amino Transf (AST/SGOT) 18, B-Type Natriuretic Peptide 21.9, BUN/ Creatinine Ratio 14, Basophils # (Auto) 0.0, Basophils (%) (Auto) 0, Blood Urea Nitrogen 19H, Calcium Level 9.5, Carbon Dioxide Level 20L, Chloride Level 108H, Creatine Kinase MB 2.0, Creatinine 1.36H, Eosinophils # (Auto) 0.3, Eosinophils (%) (Auto) 3, Estimat Glomerular Filtration Rate 51, Glucose Level 147H, Hematocrit 48, Hemoglobin 16.6, INR Comment 1.0, Lipase 94H, Lymphocytes # (Auto ) 3.8, Lymphocytes (%) (Auto) 42, Magnesium Level 2.3, Mean Corpuscular Hemoglobin 32, Mean Corpuscular Hemoglobin Concent 35, Mean Corpuscular Volume 91, Mean Platelet Volume 10.3, Monocytes # (Auto) 0.7, Monocytes (%) (Auto) 8, Neutrophils # (Auto) 4.3, Neutrophils (%) (Auto) 47, Platelet Count 207, Potassium Level 4.0, Prothrombin Time 13.0, Red Blood Count 5.23, Red Cell Distribution Width 14.2, Sodium Level 140, Total Bilirubin 0.5, Total Creatine Kinase 65, Total Protein 8.0, Troponin I < 0.30, White Blood Count 9.1 Laboratory Tests 03/24/16 06:57 A/P-Cardiology Assessment/Admission Diagnosis * Ac inf STEMI * Ch RBBB * Hypertension, by history * Hyperlipidemia, by history * H/o tobacco use Discussion and Recomendations * Emergency cath with intent to PCI, if feasible, given acute STEMI with continuing symptoms Clinical Quality Measures AMI/AHF: ASA po Prior to arrival: DONNA Saleem MD FACP FAC CCDS Mar 24, 2016 08:23
[2016-03-24 08:45] VITALS: BP 104/65
[2016-03-24] MEDS ORDERED: ACETAMINOPHEN 325 MG TABLET/CAPLET (TYLENOL) PO PRN (08:45)
[2016-03-24] MEDS ORDERED: TEMAZEPAM 7.5 MG CAP (RESTORIL) PO PRN (08:45)
[2016-03-24] MEDS ORDERED: PATIENT MAY USE OWN MEDS, ALL PO SCH (08:45)
[2016-03-24] MEDS: ASPIRIN E.C. 81 MG (ECOTRIN) TAB PO SCH (09:00)
[2016-03-24] MEDS: CLOPIDOGREL 75 MG (PLAVIX) TABLET PO SCH (09:00)
[2016-03-24] MEDS: NS IV 1000 ML 1,000 ML IV SCH ×2 (09:03→19:16)
[2016-03-24] MEDS ORDERED: MELA1TAB20 PO (10:13)
[2016-03-24] MEDS: lisINopril 10 MG (PRINIVIL) TAB PO SCH (11:31)
--- NOTE | 2016-03-24 13:33 | CARDIAC CATHETERIZATION ---
PROCEDURE PHYSICIAN: ANTONI JARA CARDIAC CATHETERIZATION AND CORONARY INTERVENTION REPORT DATE OF PROCEDURE: 03/24/2016 Reyes Brody is a 70-year-old man who presented to the emergency room with approximately one hour chest discomfort in the mid chest radiating to the left arm and left jaw and associated with ST elevation in the inferior leads. Due to this presentation with acute inferior ST elevation myocardial infarction associated continuing symptoms, emergency cardiac catheterization was recommended informed consent was obtained for cardiac catheterization and ad hoc coronary intervention if needed. PROCEDURE: He was brought to the cardiac catheterization laboratory and the right groin was prepared and draped in the usual sterile fashion. 1% lidocaine was used for local anesthesia. Modified Seldinger technique was used to advance a 6-Greenlandic sheath in right femoral artery. 6-Greenlandic JL4 catheter was used for left coronary angiography. We subsequently proceeded with angiography and intervention to the right coronary artery with a 6-Greenlandic JR4 guide catheter. PERCUTANEOUS INTERVENTION TO THE RIGHT CORONARY ARTERY: We used a 6-Greenlandic JR4 guide catheter. The right coronary artery showed very proximal occlusion. We used the pigtail catheter to care out left heart catheterization and left ventricular angiography. We used ChoICE floppy and ChoICE PTT Graphix wires to cross the complete occlusion. Finally, we were able to do so with the ChoICE floppy wire. Balloon angioplasty was carried out with 2.0 x 20 mm Emerge balloon. Subsequently, stenting was carried out with Alpine Xience 2.75 x 23 mm stent which covers the lesions and extends up to the ostium of the right coronary artery. During the intervention procedure, the patient did have multiple episodes of ventricular fibrillation that required external defibrillation. He also required blood pressure support with dopamine and we also gave atropine during an episode of bradycardia. 300 mg amiodarone were also given during his repeated episodes of ventricular fibrillation. At the end of the procedure, however, he was hemodynamically stable and the flow in the right coronary artery had improved from NANCY 0 to NANCY 3. At the end of the procedure, following removal of the angioplasty equipment, Mynx was used to achieve hemostasis. HEMODYNAMICS: Left ventricular pressure following coronary intervention was 89/18 and the aortic pressure on pullback across the aortic valve was 89/43 with a mean of 55 mmHg. LEFT VENTRICULAR ANGIOGRAPHY: Left ventricular angiography was carried out in the right anterior oblique projection. Global left ventricular systolic function appears normal. Left ventricular ejection fraction is estimated approximately 60 to 65%. There does not appear to be significant mitral regurgitation. CORONARY ANGIOGRAPHY: The left main coronary is free of significant disease. There is diffuse coronary calcification involving the proximal and mid portions of all coronary vessels. Left anterior descending artery has diffuse, moderate disease. The left circumflex artery has mild to moderate diffuse disease. There are left to right collaterals of the right coronary artery. The right coronary artery was occluded in its very proximal portion, to which successful balloon angioplasty and stenting was carried out as described above. Following deployment of Alpine Xience 2.75 x 23 mm stent in the proximal and ostial right coronary artery, there is 0% residual stenosis at the site of complete occlusion and the flow improved from NANCY 0 to NANCY 3. The mid right coronary artery has multiple lesions of up to approximately 60% mid were not intervened on. CONCLUSIONS: 1. Coronary artery disease, primarily consisting of complete proximal occlusion of the right coronary artery to which successful stenting with Alpine Xience 2.75 x 23 mm stent was carried out which reduced the stenosis to 0% and returned normal antegrade flow. The rest of the coronary vessels have diffuse, moderate disease. 2. Well preserved global left ventricular systolic function with an ejection fraction of 60 to 65%. 3. No significant mitral regurgitation. 4. Elevated left ventricular end-diastolic pressure. DISCUSSION AND RECOMMENDATIONS: Risk factor modification has been reviewed with him. He has been advised to quit tobacco use immediately and completely. Aspirin is being continued. Plavix has been added to the regimen. GABY inhibitors is being continued. Beta blockers are being added to the regimen was continued if tolerated. He has been hospitalized following the presentation with acute ST elevation myocardial infarction and subsequent percutaneous intervention to the right coronary artery. Job ID: [id number] Dictated Date: 03/24/2016 08:59:16 Rn Picu Date: 03/24/2016 13:09:36 / chanelle SCHULZ
[2016-03-24 19:00] VITALS: BP 108/68
[2016-03-24 20:00] VITALS: BP 96/71
[2016-03-24 21:00] VITALS: BP 98/72
[2016-03-24] MEDS ORDERED: ROSUVASTATIN 20 MG (CRESTOR) TABLET PO SCH (21:00)
[2016-03-24 22:00] VITALS: BP 113/61
[2016-03-24 23:00] VITALS: BP 124/72
[2016-03-25] VITALS (9 sets, daily range): BP systolic 106–130; BP diastolic 60–87
[2016-03-25 04:20] LABS: MEAN PLATELET VOLUME 10.5 FL (7.4-10.4); RED BLOOD COUNT 4.18 10^6/uL (4.35-5.85); RED CELL DISTRIBUTION WIDTH 14.4 % (10.0-14.5); WHITE BLOOD COUNT 10.3 10^3/uL (4.3-11.0)
[2016-03-25] MEDS: NS IV 1000 ML 1,000 ML IV SCH (04:35)
[2016-03-25 04:45] LABS: ANION GAP 7 MMOL/L (5-14); BLOOD UREA NITROGEN 20 MG/DL (7-18); BUN/CREATININE RATIO 17; CALCIUM 8.4 MG/DL (8.5-10.1); CARBON DIOXIDE 20 MMOL/L (21-32); CHLORIDE 111 MMOL/L (98-107); CREATININE SERUM 1.15 MG/DL (0.60-1.30); GFR ESTIMATED > 60; GLUCOSE 99 MG/DL (70-105); POTASSIUM 4.4 MMOL/L (3.6-5.0); SODIUM 138 MMOL/L (135-145)
[2016-03-25] MEDS: ASPIRIN E.C. 81 MG (ECOTRIN) TAB PO SCH (08:44)
[2016-03-25] MEDS: lisINopril 10 MG (PRINIVIL) TAB PO SCH (08:44)
[2016-03-25] MEDS: CLOPIDOGREL 75 MG (PLAVIX) TABLET PO SCH (08:44)
--- NOTE | 2016-03-25 09:43 | Progress Note-Cardiology ---
Cardiology SOAP Progress Note Subjective: He denies cp or palp or syncope or shortness of breath or leg or groin discomfort He feels well and insists on going home Objective: I&O/Vital Signs Vital Sign - Last 12Hours 03/24/16 03/24/16 03/25/16 03/25/16 22:00 23:00 00:00 00:00 Temp 97.9 Pulse 51 48 49 Resp 17 16 17 B/P 113/61 124/72 109/70 Pulse Ox 96 95 99 O2 Delivery Room Air Room Air Room Air Room Air 03/25/16 03/25/16 03/25/16 03/25/16 00:00 01:00 01:00 02:00 Pulse 73 73 53 Resp 13 16 B/P 108/60 106/60 Pulse Ox 95 98 98 O2 Delivery Room Air Room Air Room Air 03/25/16 03/25/16 03/25/16 03/25/16 03:00 04:00 04:00 05:00 Pulse 49 52 52 Resp 13 13 14 B/P 116/69 111/67 122/68 Pulse Ox 96 99 97 98 O2 Delivery Room Air Room Air Room Air Room Air 03/25/16 03/25/16 03/25/16 06:00 08:47 08:47 Temp 97.3 Pulse 53 53 Resp 18 B/P 130/87 129/78 Pulse Ox 96 97 97 O2 Delivery Room Air Room Air Room Air Intake and Output 03/25/16 00:00 Intake Total 1450 ml Balance 1450 ml Weight (Pounds): 217 Weight (Ounces): 3.0 Weight (Calculated Kilograms): 98.614665 Groin site without hematoma: Yes Bruising: mild bruising Constitutional: AAO x 3 well-developed well-nourished Respiratory: No accessory muscle use, other (good bilateral air entry; a few scattered rhonchi) Cardiovascular: regular rate-rhythm S1 and S2 systolic murmur (faint EL at cardiac base) Gastrointestional: No tender, No guarding, No rebound, audible bowel sounds Extremities: No clubbing, No cyanosis, No significant edema Neurologic/Psychiatric: oriented x 3 grossly intact Skin: No rash on exposed areas, No ulcerations on exposed areas Results/Procedures: Labs Laboratory Tests 03/25/16 03:32: Anion Gap 7, BUN/Creatinine Ratio 17, Blood Urea Nitrogen 20H, Calcium Level 8.4L, Carbon Dioxide Level 20L, Chloride Level 111H, Creatinine 1.15, Estimat Glomerular Filtration Rate > 60, Glucose Level 99, Hematocrit 39L, Hemoglobin 13.2#L, Mean Corpuscular Hemoglobin 32, Mean Corpuscular Hemoglobin Concent 34, Mean Corpuscular Volume 94, Mean Platelet Volume 10.5H, Platelet Count 172, Potassium Level 4.4, Red Blood Count 4.18L, Red Cell Distribution Width 14.4, Sodium Level 138, White Blood Count 10.3 Laboratory Tests 03/24/16 06:57 03/25/16 03:32 A/P: Assessment: * Ac inf STEMI, treated with primary angioplasty on 03/24/15 * Card cath of 03/24/15: Coronary artery disease, primarily consisting of complete proximal occlusion of the right coronary artery to which successful stenting with Alpine Xience 2.75 x 23 mm stent was carried out which reduced the stenosis to 0% and returned normal antegrade flow. The rest of the coronary vessels have diffuse, moderate disease. Well preserved global left ventricular systolic function with an ejection fraction of 60 to 65%. No significant mitral regurgitation. Elevated left ventricular end-diastolic pressure. * Ch RBBB * Hypertension, by history * Hyperlipidemia, by history * H/o tobacco use Plan: * I have advised him to stay another day after his ac STEMI of a little over 24 hours ago that was associated with emma-CT v fib. He understands the recommendation, including some chance of fatal arrhythmia, since it is not quite 48 hours post-CT. He refuses to stay * I have discussed cor risk factor modification and medication compliance and outpatient f/u with him in detail * I have discussed the rationale of all of his meds and their potential side effects and the importance of compliance with meds, in particular clopidogrel * I have advised immediate and complete smoking cessation * Outpatient card f/u is with his regular relish blender, Dr Clayton * I have advised repeat lipase and amylase prior to discharge, since they were mildly elevated at admission. If still elevated, he will f/u AMA with is pcp for this * He understands all of the above and indicates compliance Clinical Quality Measures AMI/AHF: ASA po Prior to arrival: ANTONI Saleem MD FACP FAC CCDS Mar 25, 2016 09:43
[2016-03-25] MEDS ORDERED: AMIODARONE 150 MG/3 ML (CORDARONE) AMP IV ONE (09:52)
[2016-03-25 10:01] LABS: AMYLASE 67 U/L (25-125); LIPASE 58 U/L (8-78)
--- NOTE | 2016-03-25 10:01 | Cardiology Discharge Summary ---
Diagnosis/Chief Complaint Date of Admission Mar 24, 2016 at 08:30 Date of Discharge 03/25/16 Admission Diagnosis * Ac inf STEMI, treated with primary angioplasty on 03/24/15 * Card cath of 03/24/15: Coronary artery disease, primarily consisting of complete proximal occlusion of the right coronary artery to which successful stenting with Alpine Xience 2.75 x 23 mm stent was carried out which reduced the stenosis to 0% and returned normal antegrade flow. The rest of the coronary vessels have diffuse, moderate disease. Well preserved global left ventricular systolic function with an ejection fraction of 60 to 65%. No significant mitral regurgitation. Elevated left ventricular end-diastolic pressure. * Ch RBBB * Hypertension, by history * Hyperlipidemia, by history * H/o tobacco use Chief Complaint/HPI Chief Complaint/HPI CC: Chest pain HPI: 71 yo man with multiple cor risk factors and with approx 2 weeks of intermittent chest discomfort, awoke with mid sternal and L chest pain, radiating to L arm and L jaw, and associated with diaphoresis and shortness of breath, not associated with palp or syncope. Presented to ER where he was found to have new ST elev in inf leads. Emergency cath and possible PCI recommended. The ER physician and I spoke with him and he provided verbal consent Successful primary angioplasty carried out on the morning of 03/24/16, immediately after presentation. Please refer to cath report and progress note of 03/25/16 I have advised him to stay another day after his ac STEMI of a little over 24 hours ago that was associated with emma-IA v fib. He understands the recommendation, including some chance of fatal arrhythmia, since it is not quite 48 hours post-IA. He refuses to stay I have discussed cor risk factor modification and medication compliance and outpatient f/u with him in detail I have discussed the rationale of all of his meds and their potential side effects and the importance of compliance with meds, in particular clopidogrel. He understands I have advised immediate and complete smoking cessation Outpatient card f/u is with his regular casino assistant manager, Dr Clayton Discharge Summary Procedures Card cath and primary PCI on 03/24/16 Hospital Course Pending Labs Laboratory Tests 03/25/16 03:32: Amylase Level [Pending], Anion Gap 7, BUN/Creatinine Ratio 17, Blood Urea Nitrogen 20, Calcium Level 8.4, Carbon Dioxide Level 20, Chloride Level 111, Creatinine 1.15, Estimat Glomerular Filtration Rate > 60, Glucose Level 99, Hematocrit 39, Hemoglobin 13.2, Lipase [Pending], Mean Corpuscular Hemoglobin 32 , Mean Corpuscular Hemoglobin Concent 34, Mean Corpuscular Volume 94, Mean Platelet Volume 10.5, Platelet Count 172, Potassium Level 4.4, Red Blood Count 4.18, Red Cell Distribution Width 14.4, Sodium Level 138, White Blood Count 10.3 Discussion & Recommendations Follow up appt.: F/u with Dr Clayton next week No tobacco use Dicharge Diet: Cardiac Diet Activity as Tolerated: Yes Home Medications Reviewed patient Home Medication Reconciliation Form Discharge Home Medications: Reviewed and agree with Discharge Medication list on patient's Discharge Instruction sheet Clinical Quality Measures AMI/AHF: ASA po Prior to arrival: No DVT/VTE Risk/Contraindication: Risk Factor Score Per Nursin RFS Level Per Nursing on Admit: 4+=Very High ANTONI JARA MD FACP FAC CCDS Mar 25, 2016 10:01
[2016-03-25] MEDS ORDERED: CLOP75TA28 PO (10:04)
[2016-03-25] MEDS ORDERED: METO-270 PO ×2 (10:04→10:31)
--- NOTE | 2016-03-25 10:05 | Discharge Inst-Post CATH ---
Discharge Inst-CATH Post Cardiac Cath D/C Inst Follow Up/Plan F/u with Dr Clayton next week F/u with Dr Govea AMA CARDIAC CATH DISCHARGE INSTRUCTIONS *Hold Metformin for 48 hours post heart cath. ACTIVITY * Go Home directly and rest. * Limit activity of the leg (or wrist if it was used) for 7 days including aerobics, swimming, jogging, bicycling, etc. * Restrict stair-climbing for 7 days if possible, if not, climb up with your non -cath leg, then bring together on the same step. * Avoid lifting, pushing, pulling or excessive movement of the affected extremity for 7 days. * Customary sexual activity may be resumed after 2 days-use caution not to use a position that strains or causes pain to the affected extremity. * No driving for 24 hours. * NO SMOKING. * Avoid straining for bowel movements for 7 days. * Gentle walking on level ground is allowed. * Returning to work will depend on the type of procedure and the results. Your doctor will discuss this with you. CALL YOUR DOCTOR FOR ANY OF THE FOLLOWING: *If bleeding from the puncture site occurs- Apply gentle pressure to site with clean cloth and call your doctor or EMS. * If a knot or lump forms under the skin, increases in size, or causes pain. * If bruising appears to be worsening or moving further down your leg instead of disappearing. * Temperature above 101 F. CARE OF YOUR GROIN INCISION; * Bruising or purple discoloration of the skin near the puncture site is common. * You may shower only, no bathtub bathing for 5 days. Be careful to avoid slipping as your leg may feel stiff. * If a closure device was used on your femoral artery, please see the attached guide regarding care of the device and your leg. * REMOVE the dressing from your groin the next day after your procedure in the shower. CARE OF YOUR WRIST INCISION; * Bruising or purple discoloration of the skin near the puncture site is common. * You may shower. * DO NOT submerge wrist. * Remove dressing in 24 hours. ANTONI JARA MD [facility] CCDS Mar 25, 2016 10:05
--- NOTE | 2016-03-25 10:06 | Discharge Inst-Cardiology ---
Discharge Inst-Cardiac Discharge Medications New Medications: Clopidogrel Bisulfate (Clopidogrel) 75 Mg Tablet 75 MG PO DAILY #90 Ref 3 TAB Metoprolol Succinate (Metoprolol Succinate) 25 Mg Tab.er.24h 25 MG PO DAILY #90 Ref 3 TAB Continued Medications: Aspirin (Aspirin) 81 Mg Tab.chew 81 MG PO DAILY TAB Cholecalciferol (Vitamin D3) (Vitamin D3) 5,000 Unit Tablet 5000 UNIT PO DAILY TAB Cyanocobalamin (Vitamin B-12) (Vitamin B-12) 2,500 Mcg Tab.subl 2500 MCG SL DAILY TAB Lisinopril (Lisinopril) 10 Mg Tablet 10 MG PO DAILY TAB Melatonin/Pyridoxine HCl (B6) (Melatonin 10 mg Tablet) 1 Each Tab.mphase 10 MG PO HS MG Multivitamin (Men's Multi-Vitamin) 1 Each Tablet 1 TAB PO DAILY TAB Niacinamide (Niacin) 500 Mg Tablet 500 MG PO DAILY TAB Rosuvastatin Calcium (Rosuvastatin Calcium) 20 Mg Tablet 20 MG PO DAILY TAB Discontinued Medications: Doxazosin Mesylate (Doxazosin Mesylate) 2 Mg Tablet 2 MG PO BID TAB Ketoconazole (Ketoconazole) 200 Mg Tablet 200 MG PO DAILY TAB Valerian Root (Valerian) 450 Mg Capsule 450 MG PO HS CAP Patient Instructions Patient Instructions: No tobacco use Activity & Diet Discharge Diet: Cardiac Diet Activity as Tolerated: Yes Orders-Post D/C & Referrals Pneu Vac Indicated: Yes ANTONI JARA MD FACP FAC CCDS Mar 25, 2016 10:06
== END 2016-03-25 11:10 | disposition home or self-care (01) | DRG 246 ==
LOC: EDUNIT# 06:52 → ER 06:53 → CATH 07:16 → ICU 08:30
PROVIDERS: ADMIT Internal Medicine Cardiovascular Disease; ATTEND Internal Medicine Cardiovascular Disease
PROC: 027034Z Dilation of Coronary Artery, One Artery with Drug-eluting Intraluminal Device, Percutaneous Approach (ICD-10-PCS; principal; 2016-03-24)
PROC: 4A023N7 Measurement of Cardiac Sampling and Pressure, Left Heart, Percutaneous Approach (ICD-10-PCS; 2016-03-24)
PROC: B2111ZZ Fluoroscopy of Multiple Coronary Arteries using Low Osmolar Contrast (ICD-10-PCS; 2016-03-24)
PROC: B2151ZZ Fluoroscopy of Left Heart using Low Osmolar Contrast (ICD-10-PCS; 2016-03-24)
DX: I21.19 ST elevation (STEMI) myocardial infarction involving other coronary artery of inferior wall (principal); I25.10 Atherosclerotic heart disease of native coronary artery without angina pectoris; I49.01 Ventricular fibrillation; R00.1 Bradycardia, unspecified; I10 Essential (primary) hypertension; I45.10 Unspecified right bundle-branch block; E78.00 Pure hypercholesterolemia, unspecified; F17.290 Nicotine dependence, other tobacco product, uncomplicated
CPT/HCPCS: 36415; 80048; 80053; 82150; 82550; 82553; 83690; 83735; 83880; 84484; 85025; 85027; 85610; 85730; 93005; 93041; 93458; 96374; 96375

== ENCOUNTER 2016-04-26 14:08 | Observation (INO) | payer MEDICARE, OTHER ==
[~2016-04-26] VITALS: Ht 170.2 cm; Wt 95.7 kg
[~2016-04-26 14:08] MED LIST changes: -ASPIRIN 81 MG CHEW (CHILDREN'S ASA) ONE; +CLOP75TA28 PO; +METO-270 PO; -RX-NITROGLYCERIN 0.4 MG TAB BTL 25'S SL ONE
--- OUTSIDE RECORDS SUMMARY | 2016-04-26 14:15 | XMS REPORT | Continuity of Care Document ---
Author Author [facility] Organization [facility] Address Unknown Phone Unavailable Care Team Providers Care Lunch Cook Name Role Phone DONNA MATOS MD PCP Insurance Providers Payer Name Policy Number Subscriber Name Relationship [employer] [id number] Jalen Brody 18 Self / Same As Patient Enter Insurance Name [id number] Jalen Brody 18 Self / Same As Patient For Life [id number] Jalen Brody 16 Self / Same As Patient Advance Directives Directive Response Recorded Date/Time Advance Directives No 03/16/16 3:00pm Health Care Power of Tennis Player Yes 03/16/16 3:00pm Organ Donor No 03/16/16 [...] - 99.5) 03/17/2016 10:30am Temperature (Calculated Celsius) 36.42928 degrees C (36.4 - 37.5) 03/17/2016 8:35am [...] 7.00 inches 03/16/2016 3:00pm Height (Calculated Centimeters) 170.443833 cm 03/16/2016 3:00pm Weight (Pounds) 212 pounds 03/17/2016 5:51am Weight (Ounces) 4.0 oz 03/16/2016 3:00pm Weight (Calculated Grams) 34321.583 gm 03/17/2016 5:51am Weight (Calculated Kilograms) 96.435816 kilograms 03/17/2016 5:51am Calculated BMI 33.2 03/16/2016 [...] Date Attending Provider Discharged Inpatient (obs) [facility] 03/16/16 3:10pm 10:30am RONDA POE MD Recent Diagnosis chest pain
[2016-04-26] MEDS ORDERED: RX-NITROGLYCERIN 0.4 MG TAB BTL 25'S SL ONE ×2 (14:18→14:30)
[2016-04-26] MEDS ORDERED: ASPIRIN 81 MG CHEW (CHILDREN'S ASA) ONE (14:18)
[2016-04-26 14:25] LABS: BASOPHILS % (AUTO) 0 % (0-10); EOSINOPHILS # (AUTO) 0.3 10^3/uL (0.0-0.3); EOSINOPHILS % (AUTO) 3 % (0-10); LYMPHOCYTES # (AUTO) 2.5 X 10^3 (1.0-4.0); LYMPHOCYTES % (AUTO) 30 % (12-44); MEAN CORPUSCULAR HEMOGLOBIN 32 PG (25-34); MEAN CORPUSCULAR HGB CONC 36 G/DL (32-36); MEAN CORPUSCULAR VOLUME 90 FL (80-99); MEAN PLATELET VOLUME 10.6 FL (7.4-10.4); MONOCYTES # (AUTO) 0.9 X 10^3 (0.0-1.0); MONOCYTES % (AUTO) 11 % (0-12); NEUTROPHILS # (AUTO) 4.8 X 10^3 (1.8-7.8); NEUTROPHILS % (AUTO) 56 % (42-75); PLATELET COUNT 165 10^3/uL (130-400); RED BLOOD COUNT 4.59 10^6/uL (4.35-5.85); RED CELL DISTRIBUTION WIDTH 13.8 % (10.0-14.5); WHITE BLOOD COUNT 8.5 10^3/uL (4.3-11.0)
--- NOTE | 2016-04-26 14:27 | ED Chest Pain ---
General Chief Complaint: Chest Pain Stated Complaint: CHEST PAIN Source: patient Exam Limitations: no limitations History of Present Illness Time seen by provider: 14:07 Initial Comments Here with report of anterior chest wall pain and left jaw pain that has been going on since about 6-8 a.m. this morning. States it started with jaw pain. Does have some nausea and not feeling right. Denies sweating or vomiting. Had recent stent placement and cardiac arrest one month ago. Reports that he takes his medications as directed. States this feels very similar but not as bad as his previous event. 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 TRUCK OPERATOR: No Associated Symptoms: No dizziness, No fever/chills, nausea/vomitingNo shortness of breath, weakness Allergies and Home Medications Allergies Coded Allergies: No Known Drug Allergies (Unverified , 03/16/16) Home Medications Aspirin 81 Mg Tab.chew 81 MG PO DAILY (Reported) Cholecalciferol (Vitamin D3) 5,000 Unit Tablet 5,000 UNIT PO DAILY (Reported) Clopidogrel Bisulfate 75 Mg Tablet #90 75 MG PO DAILY Prescribed by: ANTONI JARA on 03/25/16 1004 Cyanocobalamin (Vitamin B-12) 2,500 Mcg Tab.subl 2,500 MCG SL DAILY (Reported) Lisinopril 20 Mg Tablet #90 (Reported) Melatonin/Pyridoxine HCl (B6) 1 Each Tab.mphase 10 MG PO HS (Reported) Metoprolol Succinate 25 Mg Tab.er.24h #90 12.5 MG PO DAILY Prescribed by: BETY WADE on 03/25/16 1031 Multivitamin 1 Each Tablet 1 TAB PO DAILY (Reported) Niacinamide 500 Mg Tablet 500 MG PO DAILY (Reported) Rosuvastatin Calcium 20 Mg Tablet 20 MG PO DAILY (Reported) Review of Systems Constitutional: see HPINo chills, No fever EENTM: No Symptoms Reported Respiratory: No Symptoms Reported Cardiovascular: See HPI Chest PainDenies Edema Gastrointestinal: See HPI Genitourinary: No Symptoms Reported Musculoskeletal: no symptoms reported Skin: no symptoms reported All Other Systems Reviewed Negative Unless Noted: Yes Past Eifghvn-Ewrwbl-Bochvg Hx Patient Social History Alcohol Use: Occasionally Uses Recreational Drug Use: No Smoking Status: Current Everyday Smoker Type Used: Cigars Recent Hopitalizations: Yes (CHEST PAIN) Immunizations Up To Date Tetanus Booster (TDap): Unknown Date of Influenza Vaccine: Mar 17, 2016 Seasonal Allergies Seasonal Allergies: No Surgeries HX Surgeries: No Respiratory Hx Respiratory Disorders: No Cardiovascular Hx Cardiac Disorders: Yes (stent) Cardiac Disorders: High Cholesterol, Hypertension Neurological Hx Neurological Disorders: No Reproductive System Hx Reproductive Disorders: No Genitourinary Hx Genitourinary Disorders: No Gastrointestinal Hx Gastrointestinal Disorders: No Musculoskeletal Hx Musculoskeletal Disorders: No Endocrine Hx Endocrine Disorders: No HEENT HX ENT Disorders: Yes HEENT Disorders: Cataract Cancer Hx Cancer: No Psychosocial Hx Psychiatric Problems: No Integumentary HX Skin/Integumentary Disorder: No Blood Transfusions Hx Blood Disorders: No Reviewed Nursing Assessment Reviewed/Agree w Nursing PMH: Yes Family Medical History Significant Family History: No Pertinent Family Hx Physical Exam Vital Signs Vital Sign - Last 12Hours 04/26/16 04/26/16 14:08 14:43 Temp 97.2 Pulse 90 Resp 18 B/P 133/73 Pulse Ox 98 O2 Delivery Room Air O2 Flow Rate 2 Capillary Refill : General Appearance: WD/WN Mild Distress (pain) HEENT: PERRL/EOMI Pharynx Normal Neck: Non Tender Supple Respiratory: Lungs Clear Normal Breath Sounds Cardiovascular: Regular Rate, Rhythm No Murmur Gastrointestinal: Non Tender Soft Extremity: Normal Range of Motion Non Tender No Pedal Edema Neurologic/Psychiatric: Alert Oriented x3 Skin: Normal Color Warm/Dry Progress/Results/Core Measures Results/Orders Lab Results Laboratory Tests Test 04/26/16 14:10 Range/Units Activated Partial Thromboplast Time 35 24-35 SEC Alanine Aminotransferase (ALT/SGPT) 25 0-55 U/L Albumin 3.9 3.2-4.5 G/DL Alkaline Phosphatase 66 40-136 U/L Anion Gap 10 5-14 MMOL/L Aspartate Amino Transf (AST/SGOT) 23 5-34 U/L BUN/Creatinine Ratio 17 Basophils # (Auto) 0.0 0.0-0.1 10^3/uL Basophils (%) (Auto) 0 0-10 % Blood Urea Nitrogen 23 H 7-18 MG/DL Calcium Level 9.4 8.5-10.1 MG/DL Carbon Dioxide Level 21 21-32 MMOL/L Chloride Level 108 H 98-107 MMOL/L Creatinine 1.39 H 0.60-1.30 MG/DL D-Dimer 0.52 H 0.00-0.49 UG/ML Eosinophils # (Auto) 0.3 0.0-0.3 10^3/uL Eosinophils (%) (Auto) 3 0-10 % Estimat Glomerular Filtration Rate 50 Glucose Level 130 H 70-105 MG/DL Hematocrit 41 40-54 % Hemoglobin 14.7 13.3-17.7 G/DL INR Comment 1.1 0.8-1.4 Lymphocytes # (Auto) 2.5 1.0-4.0 X 10^3 Lymphocytes (%) (Auto) 30 12-44 % Magnesium Level 2.2 1.8-2.4 MG/DL Mean Corpuscular Hemoglobin 32 25-34 PG Mean Corpuscular Hemoglobin Concent 36 32-36 G/DL Mean Corpuscular Volume 90 80-99 FL Mean Platelet Volume 10.6 H 7.4-10.4 FL Monocytes # (Auto) 0.9 0.0-1.0 X 10^3 Monocytes (%) (Auto) 11 0-12 % Myoglobin 66.0 10.0-92.0 NG/ML Neutrophils # (Auto) 4.8 1.8-7.8 X 10^3 Neutrophils (%) (Auto) 56 42-75 % Platelet Count 165 130-400 10^3/uL Potassium Level 3.9 3.6-5.0 MMOL/L Prothrombin Time 14.1 12.2-14.7 SEC Red Blood Count 4.59 4.35-5.85 10^6/uL Red Cell Distribution Width 13.8 10.0-14.5 % Sodium Level 139 135-145 MMOL/L Total Bilirubin 0.3 0.1-1.0 MG/DL Total Protein 7.5 6.4-8.2 G/DL Troponin I < 0.30 <0.30 NG/ML White Blood Count 8.5 4.3-11.0 10^3/uL My Orders Orders-SAYDA MONAE MD Cbc With Automated Diff (04/26/16 14:19) Magnesium (04/26/16 14:19) Chest 1 View, Ap/Pa Only (04/26/16 14:19) Ekg Tracing (04/26/16 14:19) Cardiac Profile 1 (04/26/16 14:19) Comprehensive Metabolic Panel (04/26/16 14:19) Myoglobin Serum (04/26/16 14:19) Protime With Inr (04/26/16 14:19) Partial Thromboplastin Time (04/26/16 14:19) O2 (04/26/16 14:19) Monitor-Rhythm Ecg Trace Only (04/26/16 14:19) Lipid Panel (04/27/16 06:00) Aspirin Chewable Tablet (Baby Aspirin Ch (04/26/16 14:30) Rx-Nitroglycerin Sl Tabs (Rx-Nitrostat S (04/26/16 14:30) Saline Lock/Iv-Start (04/26/16 14:19) Fibrin Degradation Products (04/26/16 14:19) Aspirin Chewable Tablet (Baby Aspirin Ch (04/26/16 14:18) Rx-Nitroglycerin Sl Tabs (Rx-Nitrostat S (04/26/16 14:18) Ns Iv 1000 Ml (Sodium Chloride 0.9%) (04/26/16 14:34) Ns Iv 1000 Ml (Sodium Chloride 0.9%) (04/26/16 14:32) Medications Given in ED Current Medications Medications Dose Ordered Sig/Chio Route Start Time Stop Time Status Last Admin Dose Admin Aspirin 81 mg STK-MED ONCE .ROUTE 04/26/16 14:18 04/26/16 14:20 DC 04/26/16 14:22 81 MG Nitroglycerin 0.4 mg 0.4 mg STK-MED ONCE SL 04/26/16 14:18 04/26/16 14:21 DC 04/26/16 14:23 0.4 MG Sodium Chloride 1,000 ml @ 0 mls/hr Q0M ONCE IV 04/26/16 14:34 04/26/16 14:57 DC 04/26/16 14:33 1,000 MLS/HR Vital Signs/I&O Vital Sign - Last 12Hours 04/26/16 04/26/16 04/26/16 04/26/16 14:08 14:43 14:50 15:00 Temp 97.2 Pulse 90 80 77 Resp 18 18 18 B/P 133/73 101/46 103/67 Pulse Ox 98 95 96 O2 Delivery Room Air Nasal Cannula Nasal Cannula Nasal Cannula O2 Flow Rate 2 0 2 Progress Note : Progress Note Seen and evaluated. IV, labs, EKG and chest x-ray. ASA 324 mg by mouth. Nitroglycerin sublingual ordered. Monitor patient. Patient given 1 nitroglycerin sublingual and had relief of pain but had hypotension. Normal saline IV initiated. Monitor patient. 1535: I did discuss the case with Dr. Clayton who believes the patient to be admitted for observation and he will consult. 1540: I have discussed the case with Dr. POE, on-call hospitalist as patient's primary care provider is Dr. Matos. He accepts patient for admission. Cardiology consult. This was discussed with patient who agrees with plan. I did review all the labs with the patient and both providers. 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 Extreme right axis deviation. Morphology similar to previous of . No evidence of ST elevation CO. Interpreted by me. Diagnostic Imaging Diagonstic Imaging: Xray Plain Films/CT/US/NM/MRI: chest Comments VIA [facility], [facility]. [place], [place] NAME: JALEN HANNAH [facility] REC#: [id number] PT STATUS: REG ER : 1945 PHYSICIAN: SAYDA MONAE MD ADMIT DATE: 04/26/16/ER Draft Date of Exam:04/26/16 CHEST 1 VIEW, AP/PA ONLY INDICATION: Chest pain and left jaw pain. TECHNIQUE: Frontal chest obtained at 2:48 p.m. FINDINGS: Heart and mediastinal silhouette are normal in appearance. The lungs are clear. There is no pneumothorax or pleural fluid. IMPRESSION: No acute process in the chest. Dictated on workstation # [id number] Dict: 04/26/16 1457 Trans: 04/26/16 1459 [id number] Interpreted by: INEZ THORNTON MD Electronically signed by: Reviewed: Reviewed by Me Departure Communication Time/Spoke to Admitting Phy: 15:40 Time/Spoke to Consulting Physi: 15:35 Impression Impression: Primary Impression: chest pain Disposition: ADMITTED INPATIENT Condition: Stable Decision to Admit Reason: Admit from ER (General) Decision to Admit/Date: Apr 26, 2016 Time/Decision to Admit Time: 15:35 Departure-Patient Inst. Referrals: DONNA MATOS MD (PCP/Family) Primary Care Physician SAYDA MONAE MD Apr 26, 2016 14:27
[2016-04-26] MEDS ORDERED: LISI-552 PO (14:29)
[2016-04-26] MEDS ORDERED: ASPIRIN 81 MG CHEW (CHILDREN'S ASA) PO ONE (14:30)
[2016-04-26] MEDS ORDERED: NS IV 1000 ML 1,000 ML ONE ×2 (14:32→17:10)
[2016-04-26] MEDS ORDERED: NS IV 1000 ML 1,000 ML IV ONE (14:34)
[2016-04-26 14:36] LABS: INR 1.1 (0.8-1.4); PROTHROMBIN TIME PATIENT 14.1 SEC (12.2-14.7)
[2016-04-26 14:43] VITALS: BP 101/46
[2016-04-26 14:44] LABS: ALANINE AMINOTRANSFERASE 25 U/L (0-55); ALBUMIN 3.9 G/DL (3.2-4.5); ANION GAP 10 MMOL/L (5-14); ASPARTATE AMINO TRANSFERASE 23 U/L (5-34); BILIRUBIN,TOTAL 0.3 MG/DL (0.1-1.0); BLOOD UREA NITROGEN 23 MG/DL (7-18); BUN/CREATININE RATIO 17; CALCIUM 9.4 MG/DL (8.5-10.1); CARBON DIOXIDE 21 MMOL/L (21-32); CHLORIDE 108 MMOL/L (98-107); CREATININE SERUM 1.39 MG/DL (0.60-1.30); GFR ESTIMATED 50; GLUCOSE 130 MG/DL (70-105); MAGNESIUM 2.2 MG/DL (1.8-2.4); POTASSIUM 3.9 MMOL/L (3.6-5.0); SODIUM 139 MMOL/L (135-145); TOTAL PROTEIN 7.5 G/DL (6.4-8.2)
[2016-04-26 15:00] VITALS: BP 103/67
--- NOTE | 2016-04-26 15:00 | Diagnostic Imaging Report ---
INDICATION: Chest pain and left jaw pain. TECHNIQUE: Frontal chest obtained at 2:48 p.m. FINDINGS: Heart and mediastinal silhouette are normal in appearance. The lungs are clear. There is no pneumothorax or pleural fluid. IMPRESSION: No acute process in the chest. Dictated by: Dictated on workstation # [id number]
[2016-04-26 16:30] VITALS: BP 138/90
[2016-04-26] MEDS ORDERED: NITROGLYCERIN SUBLINGUAL 0.4 MG TAB (NITROSTAT) SL PRN (19:00)
[2016-04-26] MEDS ORDERED: CATHETER FLUSH 10 ML SYR IV PRN (19:00)
[2016-04-26] MEDS ORDERED: NS IV 1000 ML 1,000 ML IV SCH (19:00)
[2016-04-26] MEDS ORDERED: morphine INJ 4 MG/ML 1 ML (VIAL/SYRINGE) IV PRN (19:00)
[2016-04-26 20:00] VITALS: BP 119/66
--- NOTE | 2016-04-26 20:42 | Consultation-Cardiology ---
HPI-Cardiology Cardiology Consultation: Date of Consultation 04/26/16 Date of Admission Attending Physician Rodolfo Woody MD Admitting Physician Tay Govea MD Consulting Physician Danna CLAYTON MD HPI: Chief Complaint: Jaw pain, chest discomfort This is a 71 year old patient of mine with history of acute AK one month ago, Dr Sanders performed PCI to the Ostial RCA occlusion with GIOVANA. Patient had cardiac arrest/VT/VFib during the PCI. He did well in the post procedure period. He started to have jaw discomfort since last night. Got worse this afternoon therefore decided to come to the ER. Jaw pain is associated with chest tightness and went away with nitroglycerin sub lingual. intensity 4/10. similar to pain previously. Review of Systems-Cardiology Review of Systems Constitutional: No As described under HPI, No no symptoms reported, No chills, No fever, No lightheadedness, No malaise, No tiredness, No weight loss, No weight gain, No other Eyes: No As described under HPI, No no symptoms reported, No blindness, No blurred vision, No contact lenses, No drainage, No decreased acuity, No foreign body sensation, No glasses, No inflammation, No pain, No photophobia, No previous injury, No shadows, No tunnel vision, No other, No vision change Ears/Nose/Throat: No As described under HPI, No no symptoms reported, No chronic hearing loss, No epistaxis, No ear discharge, No ear pain, No loose teeth, No mouth pain, No mouth swelling, No nasal drainage, No nose pain, No recent hearing loss, No throat pain, No throat swelling, No ulcerations, No other Respiratory: No no symptoms reported, No As described under HPI, No cough, No orthopnea, No shortness of breath, No SOB with excertion, No SOB at rest, No stridor, No wheezing, No other Cardiovascular: As described under HPI chest pain Gastrointestinal: No no symptoms reported, No As described under HPI, No abdomen distended, No abdominal pain, No blood streaked bowels, No constipation , No diarrhea, No difficulty swallowing, No nausea, No poor appetite, No poor fluid intake, No rectal bleeding, No vomiting, No other, No nausea/vomiting/ diarrhea, No stool coloration changes Genitourinary: No no symptoms reported, No As described under HPI, No burning, No dysuria, No discharge, No frequency, No flank pain, No hematuria, No incontinence, No pain, No urgency, No other, No urine frequency changes, No urine coloration changes Musculoskeletal: No no symptoms reported, No As describe under HPI, No back pain, No gout, No joint pain, No joint swelling, No muscle pain, No muscle stiffness, No neck pain, No other Skin: No no symptoms reported, No As described under HPI, No change in color, No change in hair/nails, No dryness, No lesions, No lumps, No rash, No other, No skin related problems, No ulcerations, No rash on exposed areas, No ulcerations on exposed areas Psychiatric/Neurological: No As described under HPI, No anxiety, No depression , No emotional problems, No focal weakness, No headache, No no symptoms reported , No numbness, No other, No pre-existing deficit, No seizure, No syncope, No tingling, No tremors, No weakness Hematologic: No no symptoms reported, No As described under HPI, No anemia, No blood clots, No easy bleeding, No easy bruising, No swollen glands, No other, No bleeding abnormalities All Other Systems Reviewed Negative Unless Noted: Yes PGF-Bixgzn-Jxjxgz Hx Patient Social History Alcohol Use: Occasionally Uses Recreational Drug Use: No Smoking Status: Current Everyday Smoker Type Used: Cigars Recent Foreign Travel: No Recent Infectious Disease Expo: No Hospitalization with Isolation: Denies Physical Abuse Screen: No Sexual Abuse: No Immunizations Up To Date Tetanus Booster (TDap): Unknown Date of Influenza Vaccine: Mar 17, 2016 Past Medical History PMH As described under Assessment. Family Medical History Family Medical History: He does not report fam h/o early CAD Allergies and Home Medications Allergies Coded Allergies: No Known Drug Allergies (Unverified , 03/16/16) Home Medications Aspirin 81 Mg Tab.chew 81 MG PO DAILY (Reported) Cholecalciferol (Vitamin D3) 5,000 Unit Tablet 5,000 UNIT PO DAILY (Reported) Clopidogrel Bisulfate 75 Mg Tablet #90 75 MG PO DAILY Prescribed by: ANTONI SANDERS on 03/25/16 1004 Cyanocobalamin (Vitamin B-12) 2,500 Mcg Tab.subl 2,500 MCG SL DAILY (Reported) Lisinopril 20 Mg Tablet #90 (Reported) Melatonin/Pyridoxine HCl (B6) 1 Each Tab.mphase 10 MG PO HS (Reported) Metoprolol Succinate 25 Mg Tab.er.24h #90 12.5 MG PO DAILY Prescribed by: BETY WADE on 03/25/16 1031 Multivitamin 1 Each Tablet 1 TAB PO DAILY (Reported) Niacinamide 500 Mg Tablet 500 MG PO DAILY (Reported) Rosuvastatin Calcium 20 Mg Tablet 20 MG PO DAILY (Reported) Physical Exam-Cardiology Physical Exam Vital Signs/I&O Vital Sign - Last 12Hours 04/26/16 04/26/16 04/26/16 04/26/16 14:08 14:43 14:50 15:00 Temp 97.2 Pulse 90 80 77 Resp 18 18 18 B/P 133/73 101/46 103/67 Pulse Ox 98 95 96 O2 Delivery Room Air Nasal Cannula Nasal Cannula Nasal Cannula O2 Flow Rate 2 0 2 04/26/16 04/26/16 04/26/16 04/26/16 16:30 16:30 16:34 16:47 Temp 97.3 Pulse 68 69 Resp 18 18 B/P 138/90 Pulse Ox 99 99 96 98 O2 Delivery Nasal Cannula Nasal Cannula O2 Flow Rate 2.00 2.00 2.00 04/26/16 19:00 Pulse 74 Capillary Refill : Less Than 3 Seconds Constitutional: No appears stated age, No AAO x 3, No apparent distress, No PERRL, No well-developed, No well-nourished, No other HEENT: No PERRL, No normal ENT inspection, No TMs normal, No pharynx normal, No scleral icterus (R), No scleral icterus (L), No pale conjunctivae (R), No pale conjunctivae (L), No photophobia, No TM abnormal (R), No TM abnormal (L), No pharyngeal erythema, No tonsillar exudate, No other, No discharge, No EOMI, No hearing is well preserved, No hard of hearing, No oral hygience is good, No ulceration, No xanthelasmas are seen Neck: No non-tender, No full range of motion, No supple, No normal inspection, No carotid bruit, No limited range of motion, No lymphadenopathy (R), No lymphadenopathy (L), No tender lateral, No tender midline, No thyromegaly, No other, No carotid pulses are 2 + bilaterally, No with good upstrokes Respiratory: No accessory muscle use, No respiratory distress, No chest tender , No chest expansion is symmetric, No chest is bilaterally symmetric, No lungs clear to percussion, No lungs clear to auscultation, No crackles, No rhonchi, No rales, No stridor, No wheezing, No pleural rub, No other Cardiovascular: No regular rate-rhythm, No irregularly irregular, No extra beats, No parasternal heave is noted, No JVD, No edema, No bradycardia, No tachycardia, No point of maximal impulse, No cardiac thrills are palpable, No S1 and S2, No gallop/S3, No gallop/S4, No diastolic murmur, No systolic murmur, No friction rub, No click, No other Gastrointestinal: No tender, No soft, No round, No distended, No pulsatile mass , No organomegaly, No guarding, No rebound, No tenderness, No hernia, No mass, No audible bowel sounds, No abnormal bowel sounds, No abdominal bruits, No spleenomegaly, No other Rectal: deferred Extremities: No normal range of motion, No non-tender, No normal inspection, No pedal edema, No calf tenderness, No normal capillary refill, No pelvis stable , No calf tenderness, No inflammation, No pedal edema, No slow capillary refill , No swelling, No other, No abrasion, No clubbing, No cyanosis, No ecchymosis, No laceration, No no lower extremity edema bilateral, No significant edema, No tenderness, No wound Neurologic/Psychiatric: No photographer finish II-XII nml as tested, No no motor/sensory deficits, No alert, No normal mood/affect, No oriented x 3, No abnormal cerebellar tests, No abnormal photographer finish II-XII, No abnormal gait, No aphasia, No EOM palsy, No facial droop, No motor weakness, No sensory deficit, No depressed affect, No disoriented x 3, No other, No grossly intact, No power is 5/5 both on sides Skin: No normal color, No warm/dry, No cyanosis, No cool, No diaphoresis, No damp, No ecchymosis, No jaundice, No mottled, No pallor, No rash, No tattoos/ piercings, No ulcerations, No rash on exposed areas, No ulcerations on exposed areas, No other Data Review Labs Laboratory Tests 04/26/16 14:10: Activated Partial Thromboplast Time 35, Alanine Aminotransferase (ALT/SGPT) 25, Albumin 3.9, Alkaline Phosphatase 66, Anion Gap 10, Aspartate Amino Transf (AST/ SGOT) 23, BUN/Creatinine Ratio 17, Basophils # (Auto) 0.0, Basophils (%) (Auto) 0, Blood Urea Nitrogen 23H, Calcium Level 9.4, Carbon Dioxide Level 21, Chloride Level 108H, Creatinine 1.39H, D-Dimer 0.52H, Eosinophils # (Auto) 0.3, Eosinophils (%) (Auto) 3, Estimat Glomerular Filtration Rate 50, Glucose Level 130H, Hematocrit 41, Hemoglobin 14.7, INR Comment 1.1, Lymphocytes # (Auto) 2.5 , Lymphocytes (%) (Auto) 30, Magnesium Level 2.2, Mean Corpuscular Hemoglobin 32 , Mean Corpuscular Hemoglobin Concent 36, Mean Corpuscular Volume 90, Mean Platelet Volume 10.6H, Monocytes # (Auto) 0.9, Monocytes (%) (Auto) 11, Myoglobin 66.0, Neutrophils # (Auto) 4.8, Neutrophils (%) (Auto) 56, Platelet Count 165, Potassium Level 3.9, Prothrombin Time 14.1, Red Blood Count 4.59, Red Cell Distribution Width 13.8, Sodium Level 139, Total Bilirubin 0.3, Total Protein 7.5, Troponin I < 0.30, White Blood Count 8.5 04/26/16 20:15: ECG Impression ECG Initial ECG Rhythm: Normal Sinus Comment sinus rhythm with RBBB and LAFB. RBBB present in previous EKG as well. A/P-Cardiology Assessment/Admission Diagnosis Chest pain, history of Acute AK/VF arrest, s/p PCI to ostial RCA Plan admit for rule out. first set troponin negative. EKG - no new ST-T wave abnormalities. continue aspirin, plavix, statin. will continue to follow. Thank you for your consultation. Please call me if you have any questions. Brandi Clayton MD, FACP, FACC, FSCAI, FHRS, CCDS Interventional Cardiology Cardiac Electrophysiology Vascular Medicine and Endovascular Interventions Clinical Quality Measures AMI/AHF: ASA po Prior to arrival: No DVT/VTE Risk/Contraindication: Risk Factor Score Per Nursin RFS Level Per Nursing on Admit: 4+=Very High Danna CLAYTON MD Apr 26, 2016 20:42
[2016-04-27] VITALS: BP 131/80
[2016-04-27 04:00] VITALS: BP 141/78
[2016-04-27 04:17] LABS: BASOPHILS % (AUTO) 0 % (0-10); EOSINOPHILS # (AUTO) 0.3 10^3/uL (0.0-0.3); EOSINOPHILS % (AUTO) 5 % (0-10); LYMPHOCYTES # (AUTO) 2.3 X 10^3 (1.0-4.0); LYMPHOCYTES % (AUTO) 34 % (12-44); MEAN CORPUSCULAR HEMOGLOBIN 31 PG (25-34); MEAN CORPUSCULAR HGB CONC 34 G/DL (32-36); MEAN CORPUSCULAR VOLUME 91 FL (80-99); MONOCYTES # (AUTO) 0.9 X 10^3 (0.0-1.0); MONOCYTES % (AUTO) 14 % (0-12); NEUTROPHILS # (AUTO) 3.2 X 10^3 (1.8-7.8); NEUTROPHILS % (AUTO) 48 % (42-75); PLATELET COUNT 159 10^3/uL (130-400); RED BLOOD COUNT 4.25 10^6/uL (4.35-5.85); RED CELL DISTRIBUTION WIDTH 13.7 % (10.0-14.5); WHITE BLOOD COUNT 6.8 10^3/uL (4.3-11.0)
[2016-04-27 04:38] LABS: ALANINE AMINOTRANSFERASE 22 U/L (0-55); ALBUMIN 3.5 G/DL (3.2-4.5); ANION GAP 11 MMOL/L (5-14); ASPARTATE AMINO TRANSFERASE 21 U/L (5-34); BILIRUBIN,TOTAL 0.4 MG/DL (0.1-1.0); BLOOD UREA NITROGEN 21 MG/DL (7-18); BUN/CREATININE RATIO 18; CALCIUM 8.7 MG/DL (8.5-10.1); CARBON DIOXIDE 17 MMOL/L (21-32); CHLORIDE 111 MMOL/L (98-107); CHOLESTEROL 89 MG/DL (< 200); CREATININE SERUM 1.18 MG/DL (0.60-1.30); DIRECT LDL 33 MG/DL (1-129); GFR ESTIMATED > 60; GLUCOSE 98 MG/DL (70-105); POTASSIUM 4.6 MMOL/L (3.6-5.0); SODIUM 139 MMOL/L (135-145); TOTAL PROTEIN 6.7 G/DL (6.4-8.2); TRIGLYCERIDES 151 MG/DL (<150); VLDL CHOLESTEROL 30 MG/DL (5-40)
[2016-04-27 04:48] LABS: MYOGLOBIN SERUM 49.8 NG/ML (10.0-92.0)
[2016-04-27 07:55] VITALS: BP_SYST 138; BP_DIAS 19; BP_DIAS 79
[2016-04-27] MEDS ORDERED: ASPIRIN E.C. 325 MG (ECOTRIN) TABLET PO SCH (09:00)
[2016-04-27] MEDS ORDERED: CLOPIDOGREL 75 MG (PLAVIX) TABLET PO SCH (09:00)
[2016-04-27] MEDS ORDERED: [UNRECOGNIZED DRUG - CODE] PO (09:31)
[2016-04-27] MEDS ORDERED: METO-270 PO (09:31)
[2016-04-27] MEDS ORDERED: DOXA2TAB2 PO (09:31)
[2016-04-27] MEDS ORDERED: OMEG-109 PO (09:31)
[2016-04-27] MEDS ORDERED: KETO200T PO (09:31)
[2016-04-27] MEDS ORDERED: ROSU40TA20 PO (09:31)
[2016-04-27] MEDS ORDERED: VARE1TAB21 PO (09:31)
[2016-04-27] MEDS ORDERED: CLOP75TA28 PO (09:31)
[2016-04-27 11:12] VITALS: BP 132/88
--- NOTE | 2016-04-27 12:17 | Cardiology Progress Note ---
Cardiology SOAP Progress Note Subjective: No further chest pain. Objective: I&O/Vital Signs Vital Sign - Last 12Hours 04/27/16 04/27/16 04/27/16 04/27/16 01:00 04:00 04:00 07:00 Temp 97.3 Pulse 64 60 66 Resp 20 B/P 141/78 Pulse Ox 95 95 O2 Delivery Room Air 04/27/16 04/27/16 04/27/16 07:55 08:00 11:12 Temp 97.7 98.2 Pulse 70 63 Resp 20 20 B/P 138/79 132/88 Pulse Ox 94 96 O2 Delivery Room Air Room Air Room Air Intake and Output 04/27/16 00:00 Intake Total 1250 ml Output Total 400 ml Balance 850 ml Weight (Pounds): 211 Weight (Ounces): 0.0 Weight (Calculated Kilograms): 95.923190 Constitutional: No appears stated age, No AAO x 3, No apparent distress, No PERRL, No well-developed, No well-nourished, No other Respiratory: No accessory muscle use, No respiratory distress, No chest tender , No chest expansion is symmetric, No chest is bilaterally symmetric, No lungs clear to percussion, No lungs clear to auscultation, No crackles, No rhonchi, No rales, No stridor, No wheezing, No pleural rub, No other Cardiovascular: No regular rate-rhythm, No irregularly irregular, No extra beats, No parasternal heave is noted, No JVD, No edema, No bradycardia, No tachycardia, No point of maximal impulse, No cardiac thrills are palpable, No S1 and S2, No gallop/S3, No gallop/S4, No diastolic murmur, No systolic murmur, No friction rub, No click, No other Gastrointestional: No tender, No soft, No round, No distended, No pulsatile mass, No organomegaly, No guarding, No rebound, No tenderness, No hernia, No mass, No audible bowel sounds, No abnormal bowel sounds, No abdominal bruits, No spleenomegaly, No other Extremities: No normal range of motion, No non-tender, No normal inspection, No pedal edema, No calf tenderness, No normal capillary refill, No pelvis stable , No calf tenderness, No inflammation, No pedal edema, No slow capillary refill , No swelling, No other, No abrasion, No clubbing, No cyanosis, No ecchymosis, No laceration, No no lower extremity edema bilateral, No significant edema, No tenderness, No wound Neurologic/Psychiatric: No advertising manager II-XII nml as tested, No no motor/sensory deficits, No alert, No normal mood/affect, No oriented x 3, No abnormal cerebellar tests, No abnormal advertising manager II-XII, No abnormal gait, No aphasia, No EOM palsy, No facial droop, No motor weakness, No sensory deficit, No depressed affect, No disoriented x 3, No other, No grossly intact, No power is 5/5 both on sides Skin: No normal color, No warm/dry, No cyanosis, No cool, No diaphoresis, No damp, No ecchymosis, No jaundice, No mottled, No pallor, No rash, No tattoos/ piercings, No ulcerations, No rash on exposed areas, No ulcerations on exposed areas, No other Results/Procedures: Labs Laboratory Tests 04/26/16 14:10: Activated Partial Thromboplast Time 35, Alanine Aminotransferase (ALT/SGPT) 25, Albumin 3.9, Alkaline Phosphatase 66, Anion Gap 10, Aspartate Amino Transf (AST/ SGOT) 23, BUN/Creatinine Ratio 17, Basophils # (Auto) 0.0, Basophils (%) (Auto) 0, Blood Urea Nitrogen 23H, Calcium Level 9.4, Carbon Dioxide Level 21, Chloride Level 108H, Creatinine 1.39H, D-Dimer 0.52H, Eosinophils # (Auto) 0.3, Eosinophils (%) (Auto) 3, Estimat Glomerular Filtration Rate 50, Glucose Level 130H, Hematocrit 41, Hemoglobin 14.7, INR Comment 1.1, Lymphocytes # (Auto) 2.5 , Lymphocytes (%) (Auto) 30, Magnesium Level 2.2, Mean Corpuscular Hemoglobin 32 , Mean Corpuscular Hemoglobin Concent 36, Mean Corpuscular Volume 90, Mean Platelet Volume 10.6H, Monocytes # (Auto) 0.9, Monocytes (%) (Auto) 11, Myoglobin 66.0, Neutrophils # (Auto) 4.8, Neutrophils (%) (Auto) 56, Platelet Count 165, Potassium Level 3.9, Prothrombin Time 14.1, Red Blood Count 4.59, Red Cell Distribution Width 13.8, Sodium Level 139, Total Bilirubin 0.3, Total Protein 7.5, Troponin I < 0.30, White Blood Count 8.5 04/26/16 20:15: Troponin I < 0.30 04/27/16 03:42: Alanine Aminotransferase (ALT/SGPT) 22, Albumin 3.5, Alkaline Phosphatase 54, Anion Gap 11, Aspartate Amino Transf (AST/SGOT) 21, BUN/Creatinine Ratio 18, Basophils # (Auto) 0.0, Basophils (%) (Auto) 0, Blood Urea Nitrogen 21H, Calcium Level 8.7, Carbon Dioxide Level 17L, Chloride Level 111H, Creatinine 1.18, Eosinophils # (Auto) 0.3, Eosinophils (%) (Auto) 5, Estimat Glomerular Filtration Rate > 60, Glucose Level 98, Hematocrit 39L, Hemoglobin 13.3, Lymphocytes # (Auto) 2.3, Lymphocytes (%) (Auto) 34, Mean Corpuscular Hemoglobin 31, Mean Corpuscular Hemoglobin Concent 34, Mean Corpuscular Volume 91, Mean Platelet Volume 11.0H, Monocytes # (Auto) 0.9, Monocytes (%) (Auto) 14H , Myoglobin 49.8, Neutrophils # (Auto) 3.2, Neutrophils (%) (Auto) 48, Platelet Count 159, Potassium Level 4.6, Red Blood Count 4.25L, Red Cell Distribution Width 13.7, Sodium Level 139, Total Bilirubin 0.4, Total Protein 6.7, White Blood Count 6.8, Cholesterol Level 89, HDL Cholesterol 38L, LDL Cholesterol Direct 33, Triglycerides Level 151H, VLDL Cholesterol 30 A/P: Assessment/Dx: Chest pain, history of Acute AZ/VF arrest, 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 EKG no new ST-T wave abnormalities. Continue aspirin , Plavix, statin. Discussed at length with the patient and family. We will recommend exercise nuclear stress test. Lexiscan contraindicated due to caffeine intake. I have requested Dr. Sanders to supervise the stress test. If normal nuclear imaging, the patient can be discharged home to follow as an outpatient. Thank you for your consultation. Please call me if you have any questions. Brandi Clayton MD, FACP, FACC, FSCAI, FHRS, CCDS Interventional Cardiology Cardiac Electrophysiology Vascular Medicine and Endovascular Interventions Clinical Quality Measures AMI/AHF: ASA po Prior to arrival: Danna Franco MD Apr 27, 2016 12:17
--- NOTE | 2016-04-27 12:32 | History & Physical-Hospitalist ---
HPI History of Present Illness: HPI/Chief Complaint The patient is a 71-year-old white male who presented to the emergency room at about 13 00 hours yesterday. His complaint at that time was left sided chest pain with pain in the jaw to the level of the left angle of the mandible. This began at about 0430 hours. He reports that he had similar symptoms in February leading to a STEMI which was treated with primary angioplasty on 03/24. In the course of the angioplasty he suffered ventricular tachycardia and was successfully resuscitated. He had relative hypotension in the emergency room but was given a fluid bolus and a dose of nitroglycerin sublingual which relieved his chest pain. Troponins one and 2 were negative for infarct. He has been seen by Dr. Clayton in consultation and is anticipating a stress test early this afternoon Source: patient Exam Limitations: no limitations Date Seen 04/27/16 Attending Physician Rodolfo Poe MD PCP Tay Govea MD Referring Physician Date of Admission Apr 26, 2016 at 15:43 Home Medications & Allergies Home Medications Reviewed patient Home Medication Reconciliation Form Allergies Coded Allergies: No Known Drug Allergies (Unverified , 03/16/16) Past [id number] Hx Patient Social History Alcohol Use: Occasionally Uses Recreational Drug Use: No Smoking Status: Current Everyday Smoker Type Used: Cigars Physical Abuse Screen: No Sexual Abuse: No Recent Foreign Travel: No Contact w/other who traveled: No Recent Hopitalizations: Yes ([place]) Recent Infectious Disease Expo: No Immunizations Up To Date Tetanus Booster (TDap): Unknown Date of Influenza Vaccine: Mar 17, 2016 Seasonal Allergies Seasonal Allergies: No Surgeries HX Surgeries: No Respiratory Hx Respiratory Disorders: No Cardiovascular Hx Cardiovascular Disorders: Yes (stent) Cardiac Disorders: High Cholesterol, Hypertension Neurological Hx Neurological Disorders: No Reproductive System Hx Reproductive Disorders: No Genitourinary Hx Genitourinary Disorders: No Gastrointestinal Hx Gastrointestinal Disorders: No Musculoskeletal Hx Musculoskeletal Disorders: No Endocrine Hx Endocrine Disorders: No HEENT HX ENT Disorders: Yes HEENT Disorders: Cataract Cancer Hx Cancer: No Psychosocial Hx Psychiatric Problems: No Integumentary HX Skin/Integumentary Disorder: No Blood Transfusions Hx Blood Disorders: No Reviewed Nursing Assessment Reviewed/Agree w Nursing PMH: Yes Family Medical History Significant Family History: No Pertinent Family Hx Review of Systems Constitutional: see HPI EENTM: other (left jaw pain OU have) Respiratory: no symptoms reported Cardiovascular: see HPI chest pain Gastrointestinal: no symptoms reported Genitourinary: no symptoms reported Musculoskeletal: no symptoms reported Skin: no symptoms reported Psychiatric/Neurological: No Symptoms Reported Physical Exam Physical Exam Vital Signs Vital Sign - Last 12Hours 04/26/16 04/26/16 14:08 14:43 Temp 97.2 Pulse 90 Resp 18 B/P 133/73 Pulse Ox 98 O2 Delivery Room Air O2 Flow Rate 2 Capillary Refill : Less Than 3 Seconds General Appearance: No Apparent Distress WD/WN Eyes: Bilateral Eye Normal Inspection HEENT: Normal ENT Inspection Neck: Normal Inspection Respiratory: Chest Non Tender Lungs Clear Normal Breath Sounds No Accessory Muscle Use No Respiratory Distress Cardiovascular: Regular Rate, Rhythm No Edema No Gallop No JVD No Murmur Normal Peripheral Pulses Gastrointestinal: Normal Bowel Sounds No Organomegaly No Pulsatile Mass Non Tender Soft Back: Normal Inspection No CVA Tenderness No Vertebral Tenderness Extremity: Normal Capillary Refill Normal Inspection Normal Range of Motion Non Tender No Calf Tenderness No Pedal Edema Neurologic/Psychiatric: Alert Oriented x3 No Motor/Sensory Deficits Normal Mood/Affect Skin: Normal Color Warm/Dry Lymphatic: No Adenopathy Results Results/Procedures Lab Laboratory Tests 04/26/16 14:10 04/27/16 03:42 Assessment/Plan Admission Diagnosis 1.recent STEMI (03/24/16). 2.subsequent acute intervention and stenting. 3.recurrent chest pain suggesting angina Assessment and Plan Cardiology directed stress test today Clinical Quality Measures AMI/AHF: ASA po Prior to arrival: No DVT/VTE Risk/Contraindication: Risk Factor Score Per Nursin RFS Level Per Nursing on Admit: 4+=Very High RODOLFO POE MD Apr 27, 2016 12:32
[2016-04-27 15:27] VITALS: BP 117/78
[2016-04-27] MEDS ORDERED: METO-272 PO (17:29)
[2016-04-27 17:50] VITALS: BP 117/78
[2016-04-27] MEDS ORDERED: doxAzosin 2 MG (CARDURA) TAB PO SCH (21:00)
[2016-04-28] MEDS ORDERED: CLOPIDOGREL 75 MG (PLAVIX) TABLET PO SCH (09:00)
[2016-04-28] MEDS ORDERED: lisINopril 20 MG (ZESTRIL) TAB PO SCH (09:00)
[2016-04-28] MEDS ORDERED: ASPIRIN 81 MG CHEW (CHILDREN'S ASA) PO SCH (09:00)
[2016-04-28] MEDS ORDERED: VITAMIN D3 5,000 UNITS (CHOLECALCIFEROL ) CAPSULE PO SCH (09:00)
--- NOTE | 2016-04-28 11:30 | STRESS TEST ---
PROCEDURE PHYSICIAN: ANTONI JARA RESTING AND POST EXERCISE TECHNETIUM 99M TETROFOSMIN SPECT CT IMAGING DATE OF PROCEDURE: 04/27/2016 ORDERING PHYSICIAN: Dr. Clayton . PRIMARY PHYSICIAN: Dr. Woody. OTHER PHYSICIAN: Dr. Govea. Baseline images were carried out after injection of 10.68 mCi technetium 99m tetrofosmin. Subsequently, exercise was carried out on treadmill. Larry protocol was employed. The patient had sinus rhythm with right bundle branch block at baseline. Heart rate and blood pressure responses to exercise were normal. There was considerable baseline artifact with exercise, but there did not appear to be significant ST segment deviation. He did not report any chest pain. Test was stopped on account of fatigue. In the recovery phase, there was a 4 beat run of wide-complex tachycardia at a rate of approximately 150 beats per minute. The complexes were multiform. The patient attained 7 METs of workload and 105% of maximum predicted heart rate. He exercised for a total of 6 minutes and 39 seconds in the Larry protocol. Review of images at rest and following stress, does not indicate any significant perfusion defects consistent with significant myocardial ischemia or infarction. Gated images show normal global left ventricular systolic function with normal regional wall motion. Left ventricular ejection fraction is calculated to be 83%. Left ventricular end-diastolic volume is 60 mL. TID is absent (0.9). CONCLUSION: 1. No evidence of any significant myocardial ischemia or infarction on this study. 2. Normal regional wall motion. 3. Normal global left ventricular systolic function with a calculated ejection fraction 83%. 4. One 4-beat run of ventricular tachycardia in the recovery phase, asymptomatic, multiform. Job ID: [id number] Dictated Date: 04/27/2016 16:29:50 Leather Crafter Date: 04/28/2016 11:24:58 / chanelle SCHULZ
--- NOTE | 2016-05-06 09:11 | Physician Query-Final Dx ---
Final Diagnosis Give Final Diagnosis Please give Final Diagnosis LAURA ZHAO May 06, 2016 09:11
--- NOTE | 2016-05-12 13:18 | Progress Note-Hospitalist ---
Standard Progress Note Progress Notes/Assess & Plan Date Seen 05/12/16 Diagnosis 1.recent STEMI (03/24/16). 2.subsequent acute intervention and stenting. 3.recurrent chest pain suggesting angina Final Diagnosis Recent non-ST elevation DC (March 22). 2.recurrent chest pain suggesting angina RONDA POE MD May 12, 2016 13:18
== END 2016-04-27 17:27 | disposition home or self-care (01) ==
LOC: EDUNIT# 14:08 → ER 14:10 → UNDOADMOB 15:43 → ICU 15:43 → UNDODISOB 04-27 17:50
PROVIDERS: ADMIT Internal Medicine; ATTEND Internal Medicine
DX: R07.9 Chest pain, unspecified (principal); R68.84 Jaw pain; I10 Essential (primary) hypertension; E78.00 Pure hypercholesterolemia, unspecified; I45.10 Unspecified right bundle-branch block; I44.5 Left posterior fascicular block; I25.2 Old myocardial infarction; F17.290 Nicotine dependence, other tobacco product, uncomplicated; Z79.82 Long term (current) use of aspirin; Z79.02 Long term (current) use of antithrombotics/antiplatelets; Z79.899 Other long term (current) drug therapy; Z86.74 Personal history of sudden cardiac arrest; Z95.5 Presence of coronary angioplasty implant and graft
CPT/HCPCS: 36415; 71010; 78452; 80053; 80061; 83735; 83874; 84484; 85025; 85379; 85610; 85730; 93005; 93017; 93041; 96360; G0378

== ENCOUNTER → 2016-08-12 | Outpatient (CLI) | payer MEDICARE, OTHER ==
[~2016-08-12] MED LIST changes: +LISI-552 PO; +METO-272 PO; +OMEG-109 PO; +ROSU40TA20 PO; +VARE1TAB21 PO; +[UNRECOGNIZED DRUG - CODE] PO
--- NOTE | 2016-08-12 12:08 | Diagnostic Imaging Report ---
Examination: Segmental lower extremity pressure assessment and ankle brachial index measurement. Post volume recording waveforms are also obtained in the lower extremities. Indication: Hypertension. Arterial disease. Findings: Systolic pressure in the right Upper extremity is 138, and the left Upper extremity is 135 mmHg. RIGHT Lower extremity systolic pressures are: In the mid thigh 132 , in the upper calf 155, and at the ankle 116 DP, and 146 PT. . LEFT Lower extremity systolic pressures are: In the mid thigh 139 , in the upper calf 146, and at the ankle 134 DP, and 146 PT. . NANCY on the right is 1.1, and on the left is 1.1. Pulse volume recordings waveforms demonstrate no significant dampening of its amplitude. Impression: No evidence of significant peripheral arterial disease. Dictated by: Dictated on workstation # [id number]
== END ==
LOC: RAD 10:50
PROVIDERS: ATTEND Internal Medicine Interventional Cardiology
DX: I25.10 Atherosclerotic heart disease of native coronary artery without angina pectoris (principal); M79.606 Pain in leg, unspecified; E78.5 Hyperlipidemia, unspecified; I10 Essential (primary) hypertension; Z72.0 Tobacco use
CPT/HCPCS: 93923

== ENCOUNTER → 2018-10-04 | Outpatient (CLI) | payer MEDICARE, OTHER ==
[~2018-10-04] MED LIST changes: -KETO200T PO; +KETO200T12 PO; -METO-270 PO; -METO-272 PO; +METO-370 PO; +METO-387 PO; -ROSU20TA28 PO; +ROSU20TA32 PO; -ROSU40TA20 PO; +ROSU40TA23 PO; +VALE445C2 PO; -[UNRECOGNIZED DRUG - CODE] PO
== END | disposition home or self-care (01) ==
LOC: PREOP 05:35
PROVIDERS: ATTEND Surgery
DX: Z01.818 Encounter for other preprocedural examination (principal)